=== PATIENT | male | born 1980 | race Caucasian/White ===

== ENCOUNTER 2016-12-01 04:51 | Inpatient (IN) | payer MEDICAID ==
[~2016-12-01] VITALS: Ht 182.9 cm; Wt 103.2 kg
[2016-12-01 05:58] LABS: Basophils # (auto) 0 uL; Basophils % (auto) 0.6 % (0.0-2.0); Eosinophils # (auto) 0 uL; Eosinophils % (auto) 0.3 % (0.0-7.0); Hematocrit 49.4 % (41.0-53.0); Hemoglobin 16.3 g/dL (13.5-17.5); Lymphocytes # (auto) 1.9 uL; Lymphocytes % (auto) 36.1 % (10.0-50.0); Mean Corpuscular Hemoglobin 29.9 pg (28.0-32.0); Mean Corpuscular Hgb Conc. 32.9 g/dL (32.0-36.0); Mean Corpuscular Volume 90.8 fL (80.0-100.0); Mean Platelet Volume 7.8 fL (7.4-10.4); Monocytes # (auto) 0.4 uL; Monocytes % (auto) 7.3 % (0.0-12.0); Neutrophils # (auto) 2.9 uL; Neutrophils % (auto) 55.7 % (37.0-80.0); Platelet Count (auto) 302 10^3/uL (140-450); White Blood Cell 5.1 10^3/uL (4.4-10.8)
[2016-12-01 06:21] LABS: Albumin 3.7 g/dL (3.4-5.0); BUN/Creatinine Ratio 9.5; Potassium 4.2 mmol/L (3.5-5.1)
[2016-12-01 06:23] LABS: Bilirubin, Total 0.4 mg/dL (0.2-1.0); Total Protein 8.1 g/dL (6.4-8.2)
[2016-12-01] MEDS ORDERED: SODIUM CHLORIDE 0.9% 1,000 ML IV ONE (08:00)
[2016-12-01] MEDS ORDERED: MORPHINE SULFATE 4 MG/ML SYRG IV ONE (08:15)
[2016-12-01] MEDS ORDERED: ONDANSETRON HCL 4 MG/2 ML VIAL IV ONE (08:15)
[2016-12-01 10:36] LABS: Urine RBC None Seen /hpf (0 - 3)
[2016-12-01 11:08] LABS: Urine Bilirubin Negative (Negative); Urine Blood Negative /uL (Negative); Urine Color Yellow (Yellow); Urine Glucose Normal (Normal); Urine Hyaline Cast FEW /lpf (0 - 2); Urine Ketone TRACE (Negative); Urine Mucus FEW (None Seen); Urine Nitrite Negative (Negative); Urine Urobilinogen Normal (Negative); Urine pH 5.5 (5.0-8.0)
[2016-12-01] MEDS ORDERED: PIPERACILLIN-TAZOB 3.375GM 100 ML IV ONE (11:30)
[2016-12-01] MEDS ORDERED: HYDROmorphone HCL 2 MG/ML VL IV ONE (11:30)
[2016-12-01] MEDS ORDERED: SODIUM CHLORIDE 0.9% 1,000 ML IV SCH (11:32)
[2016-12-01] MEDS ORDERED: MORPHINE SULFATE 4 MG/ML SYRG IV PRN ×2 (11:45→12:15)
[2016-12-01] MEDS ORDERED: MORPHINE SULF INJ 2 MG/ML SYRINGE 1ML IV PRN ×3 (11:45→12:15)
[2016-12-01] MEDS ORDERED: LORazepam 2MG/ML-1ML VIAL IV PRN ×2 (11:45→12:15)
[2016-12-01] MEDS ORDERED: PROMETHAZINE HCL 25 MG/ML 1ML IV PRN ×2 (11:45→12:15)
[2016-12-01] MEDS ORDERED: FAMOTIDINE (10MG/ML) 2ML VL IV SCH (11:45)
[2016-12-01] MEDS ORDERED: NITROGLYCERIN 0.4 MG SL TAB SL PRN (11:45)
[2016-12-01] MEDS ORDERED: OMEP20CA5 OR (12:11)
[2016-12-01] MEDS ORDERED: PANTOPRAZOLE SODIUM 40 MG/10 ML VIAL IV ONE (12:15)
[2016-12-01] MEDS: SODIUM CHLORIDE 0.9% 1,000 ML IV SCH ×2 (13:07→19:46)
[2016-12-01 13:57] LABS: INR 1.04 (0.9-1.15); Partial Thromboplastin Time 27.1 sec (22.64-33.71); Prothrombin Time 10.7 sec (9.37-12.3)
[2016-12-01] MEDS ORDERED: cefTRIAXone 1GM/50ML D5W 50 ML IV ONE (14:45)
[2016-12-01 17:00] VITALS: BP 113/98
[2016-12-01] MEDS: metroNIDAZOLE 500MG/100ML 100 ML IV SCH ×2 (18:37→23:42)
[2016-12-01 19:36] LABS: Hematocrit 42.2 % (41.0-53.0); Hemoglobin 13.8 g/dL (13.5-17.5)
[2016-12-01] MEDS: MORPHINE SULFATE 4 MG/ML SYRG IV PRN (20:07)
[2016-12-01 22:00] VITALS: BP 138/83
[2016-12-01] MEDS ORDERED: PANTOPRAZOLE SODIUM 40 MG/10 ML VIAL IV SCH (22:00)
[2016-12-01] MEDS ORDERED: KETOROLAC TROMETH 30 MG/ML 1ML VIAL IV PRN (22:15)
[2016-12-02] MEDS: MORPHINE SULFATE 4 MG/ML SYRG IV PRN ×2 (00:05→04:16)
[2016-12-02 01:20] LABS: Hematocrit 41.5 % (41.0-53.0); Hemoglobin 13.6 g/dL (13.5-17.5)
[2016-12-02] MEDS: SODIUM CHLORIDE 0.9% 1,000 ML IV SCH ×2 (04:16→12:07)
[2016-12-02 05:01] VITALS: BP 149/101
[2016-12-02] MEDS: metroNIDAZOLE 500MG/100ML 100 ML IV SCH ×2 (05:46→12:07)
[2016-12-02 05:58] LABS: Basophils # (auto) 0 uL; Basophils % (auto) 0.3 % (0.0-2.0); Eosinophils # (auto) 0 uL; Hematocrit 42.1 % (41.0-53.0); Hemoglobin 13.8 g/dL (13.5-17.5); Lymphocytes # (auto) 0.8 uL; Lymphocytes % (auto) 14.4 % (10.0-50.0); Mean Corpuscular Hgb Conc. 32.8 g/dL (32.0-36.0); Mean Corpuscular Volume 91.4 fL (80.0-100.0); Mean Platelet Volume 8.2 fL (7.4-10.4); Monocytes # (auto) 0.7 uL; Monocytes % (auto) 12.5 % (0.0-12.0); Neutrophils # (auto) 4.3 uL; Neutrophils % (auto) 72.8 % (37.0-80.0); Platelet Count (auto) 219 10^3/uL (140-450); Red Cell Distribution Width 14.1 % (11.6-16.0); White Blood Cell 5.9 10^3/uL (4.4-10.8)
[2016-12-02 06:33] LABS: Albumin 3.6 g/dL (3.4-5.0); BUN/Creatinine Ratio 12.7; Bilirubin, Total 0.9 mg/dL (0.2-1.0); Calcium 8.5 mg/dL (8.5-10.1)
[2016-12-02] MEDS ORDERED: SODIUM CHLORIDE LOCK 10 ML ONE (08:03)
[2016-12-02] MEDS ORDERED: LIDOCAINE VISCOUS 2% 15ML UD ONE (08:03)
[2016-12-02] MEDS ORDERED: diphenhdrAMINE HCL 50 MG/1 ML VL ONE (08:03)
[2016-12-02 08:27] VITALS: BP 143/99
[2016-12-02] MEDS ORDERED: cefTRIAXone 1GM/50ML D5W 50 ML IV SCH (09:00)
[2016-12-02] MEDS: MIDAZOLAM HCL 5 MG/ML-1ML VIAL ONE ×2 (09:17→09:20)
[2016-12-02] MEDS: fentaNYL CITRATE 100 MCG/2 ML VL ONE ×2 (09:17→09:20)
[2016-12-02] MEDS ORDERED: PANTOPRAZOLE 40 MG TAB PO SCH (10:00)
[2016-12-02] MEDS ORDERED: PANTOPRAZOLE SODIUM 40 MG/10 ML VIAL IV SCH (10:00)
[2016-12-02] MEDS ORDERED: PANT40T PO (15:55)
[2016-12-02 16:45] VITALS: BP 149/87
== END 2016-12-02 16:45 | disposition home health service (06) | DRG 241 ==
LOC: ER 05:03 → TELE 05:04 → TELE-E-ADS 12:53 → TELE-WESTW 14:12
PROVIDERS: ADMIT Internal Medicine; ATTEND Internal Medicine
PROC: 0DJ08ZZ Inspection of Upper Intestinal Tract, Via Natural or Artificial Opening Endoscopic (ICD-10-PCS; principal; 2016-12-02 09:12)
DX: K29.70 Gastritis, unspecified, without bleeding (principal); K85.01 Idiopathic acute pancreatitis with uninfected necrosis; G21.9 Secondary parkinsonism, unspecified; K76.0 Fatty (change of) liver, not elsewhere classified; K44.9 Diaphragmatic hernia without obstruction or gangrene; Z90.89 Acquired absence of other organs; K57.90 Diverticulosis of intestine, part unspecified, without perforation or abscess without bleeding; K86.1 Other chronic pancreatitis
CPT/HCPCS: 36415; 43235; 71010; 74176; 76705; 80053; 80061; 81001; 82150; 83690; 85014; 85018; 85025; 85045; 85049; 85610; 85652; 85730; 86141; 86704; 86706; 86708; 86803; 86850; 86900; 86901; 87040; 87340; 93005; 96361; 96365; 96375; C9113; G0434; J0696; J1885; J2250; J2405; J2543; J3490

== ENCOUNTER 2016-12-13 20:27 | Inpatient (IN) | payer MEDICAID ==
[~2016-12-13] VITALS: Ht 185.4 cm; Wt 100.3 kg
[~2016-12-13 20:27] MED LIST: PANT40T PO
[2016-12-13] MEDS ORDERED: SODIUM CHLORIDE 0.9% 1,000 ML IVB ONE (20:45)
[2016-12-13] MEDS ORDERED: HYDROmorphone HCL 2 MG/ML VL IV ONE (20:45)
[2016-12-13] MEDS ORDERED: PROCHLORPERAZINE EDISYLATE 5 MG/ML 2ML VIAL IV ONE (20:45)
[2016-12-13] MEDS ORDERED: PANTOPRAZOLE SODIUM 40 MG/10 ML VIAL IV ONE (20:45)
[2016-12-13 21:24] LABS: Basophils # (auto) 0 uL; Basophils % (auto) 0.3 % (0.0-2.0); Eosinophils # (auto) 0 uL; Hematocrit 47.2 % (41.0-53.0); Hemoglobin 15.2 g/dL (13.5-17.5); Lymphocytes # (auto) 1.5 uL; Lymphocytes % (auto) 27.3 % (10.0-50.0); Mean Corpuscular Hemoglobin 29.6 pg (28.0-32.0); Mean Corpuscular Hgb Conc. 32.3 g/dL (32.0-36.0); Mean Corpuscular Volume 91.9 fL (80.0-100.0); Mean Platelet Volume 7.8 fL (7.4-10.4); Monocytes # (auto) 0.4 uL; Monocytes % (auto) 8.1 % (0.0-12.0); Neutrophils # (auto) 3.5 uL; Neutrophils % (auto) 64.3 % (37.0-80.0); Platelet Count (auto) 327 10^3/uL (140-450); Red Cell Distribution Width 14.7 % (11.6-16.0); White Blood Cell 5.5 10^3/uL (4.4-10.8)
[2016-12-13 21:34] LABS: Albumin 4.1 g/dL (3.4-5.0); BUN/Creatinine Ratio 12.1; Bilirubin, Total 0.6 mg/dL (0.2-1.0); Calcium 8.4 mg/dL (8.5-10.1); Potassium 3.6 mmol/L (3.5-5.1); Total Protein 7.9 g/dL (6.4-8.2)
[2016-12-14] MEDS ORDERED: SODIUM CHLORIDE 0.9% 1,000 ML IV SCH (00:30)
[2016-12-14] MEDS ORDERED: ACETAMINOPHEN 325 MG TAB PO PRN (00:30)
[2016-12-14] MEDS ORDERED: THIAMINE INJ 100 MG, MULTIPLE VITAMIN 10 ML, FOLIC ACID 1 MG, MAGNESIUM SULF SDV 50% 8 ... IV ONE ×5 (00:30)
[2016-12-14] MEDS ORDERED: ONDANSETRON HCL 4 MG/2 ML VIAL IV PRN (00:30)
[2016-12-14] MEDS ORDERED: BANANA BAG KIT 1 EA IV ONE (01:13)
[2016-12-14] MEDS: MORPHINE SULF INJ 2 MG/ML SYRINGE 1ML IV PRN ×6 (02:24→22:32)
[2016-12-14 02:37] VITALS: BP 135/88
[2016-12-14] MEDS: HYDROcodone-ACET 5/325MG TAB PO PRN ×4 (04:54→20:13)
[2016-12-14 05:36] VITALS: BP 115/66
[2016-12-14 09:12] VITALS: BP 104/69
[2016-12-14] MEDS: PANTOPRAZOLE SODIUM 40 MG/10 ML VIAL IV SCH (09:17)
[2016-12-14] MEDS ORDERED: IOHEXOL 300 MG/ML 100ML BOTTLE IJ ONE (12:38)
[2016-12-14 12:44] VITALS: BP 119/65
[2016-12-14] MEDS: LACTATED RINGER'S 1,000 ML IV SCH ×2 (12:45→22:32)
[2016-12-14 17:06] VITALS: BP 126/74
[2016-12-14 21:15] VITALS: BP 140/89
[2016-12-15] MEDS: LACTATED RINGER'S 1,000 ML IV SCH ×4 (02:22→15:34)
[2016-12-15] MEDS: MORPHINE SULF INJ 2 MG/ML SYRINGE 1ML IV PRN ×4 (02:43→19:16)
[2016-12-15] MEDS: HYDROcodone-ACET 5/325MG TAB PO PRN ×3 (04:09→21:57)
[2016-12-15 05:47] VITALS: BP 132/87
[2016-12-15 06:15] LABS: Basophils # (auto) 0 uL; Basophils % (auto) 0.4 % (0.0-2.0); Eosinophils # (auto) 0 uL; Eosinophils % (auto) 0.2 % (0.0-7.0); Hematocrit 42.5 % (41.0-53.0); Hemoglobin 14.1 g/dL (13.5-17.5); Lymphocytes # (auto) 1.1 uL; Lymphocytes % (auto) 23.1 % (10.0-50.0); Mean Corpuscular Hemoglobin 30.6 pg (28.0-32.0); Mean Corpuscular Hgb Conc. 33.1 g/dL (32.0-36.0); Mean Corpuscular Volume 92.7 fL (80.0-100.0); Mean Platelet Volume 8.2 fL (7.4-10.4); Monocytes # (auto) 0.6 uL; Monocytes % (auto) 13.4 % (0.0-12.0); Neutrophils # (auto) 2.9 uL; Neutrophils % (auto) 62.9 % (37.0-80.0); Platelet Count (auto) 209 10^3/uL (140-450); Red Cell Distribution Width 13.7 % (11.6-16.0); White Blood Cell 4.6 10^3/uL (4.4-10.8)
[2016-12-15 07:01] LABS: Albumin 3.7 g/dL (3.4-5.0); BUN/Creatinine Ratio 8.3; Bilirubin, Total 1.4 mg/dL (0.2-1.0); Calcium 8.7 mg/dL (8.5-10.1); Potassium 3.8 mmol/L (3.5-5.1); Total Protein 7.4 g/dL (6.4-8.2)
[2016-12-15 09:00] VITALS: BP 147/98
[2016-12-15] MEDS: PANTOPRAZOLE SODIUM 40 MG/10 ML VIAL IV SCH (09:56)
[2016-12-15 13:00] VITALS: BP 132/95
[2016-12-15 17:00] VITALS: BP 141/103
[2016-12-15 22:00] VITALS: BP 136/103
[2016-12-16] MEDS: MORPHINE SULF INJ 2 MG/ML SYRINGE 1ML IV PRN ×6 (00:03→21:11)
[2016-12-16 05:52] VITALS: BP 137/88
[2016-12-16 05:54] LABS: Albumin 3.3 g/dL (3.4-5.0); BUN/Creatinine Ratio 7.9; Calcium 8.6 mg/dL (8.5-10.1)
[2016-12-16] MEDS: LACTATED RINGER'S 1,000 ML IV SCH ×2 (07:11→08:59)
[2016-12-16 08:00] VITALS: BP 128/73
[2016-12-16] MEDS: PANTOPRAZOLE SODIUM 40 MG/10 ML VIAL IV SCH (08:59)
[2016-12-16] MEDS: HYDROcodone-ACET 5/325MG TAB PO PRN ×2 (10:13→18:22)
[2016-12-16] MEDS ORDERED: POTASSIUM CHL 20 Meq TABLET PO ONE (12:30)
[2016-12-16 13:00] VITALS: BP 152/96
[2016-12-16 17:00] VITALS: BP 113/65
[2016-12-16 20:00] VITALS: BP 124/88
[2016-12-16 22:00] VITALS: BP 124/88
[2016-12-16] MEDS: DIAZEPAM 5 MG TAB PO PRN (22:16)
[2016-12-17] MEDS: MORPHINE SULF INJ 2 MG/ML SYRINGE 1ML IV PRN ×4 (01:44→15:26)
[2016-12-17 05:30] VITALS: BP 91/58
[2016-12-17] MEDS: HYDROcodone-ACET 5/325MG TAB PO PRN ×3 (08:19→17:41)
[2016-12-17 09:00] VITALS: BP 130/84
[2016-12-17] MEDS: PANTOPRAZOLE SODIUM 40 MG/10 ML VIAL IV SCH (10:19)
[2016-12-17 13:00] VITALS: BP 134/82
[2016-12-17] MEDS: DIAZEPAM 5 MG TAB PO PRN (13:26)
[2016-12-17] MEDS ORDERED: POTASSIUM CHL 20 Meq TABLET PO ONE (13:30)
[2016-12-17 17:00] VITALS: BP 138/95
[2016-12-17 18:08] VITALS: BP 134/82
== END 2016-12-17 18:45 | disposition home or self-care (01) | DRG 282 ==
LOC: EDBD 20:27 → ER 20:27 → OVERFLOW 20:28 → WEST WING 12-14 01:30
PROVIDERS: ADMIT Nurse Practitioner; ATTEND Internal Medicine Pulmonary Disease
DX: K85.20 Alcohol induced acute pancreatitis without necrosis or infection (principal); K76.0 Fatty (change of) liver, not elsewhere classified; F41.9 Anxiety disorder, unspecified; F10.10 Alcohol abuse, uncomplicated; E66.9 Obesity, unspecified; E87.6 Hypokalemia; K21.9 Gastro-esophageal reflux disease without esophagitis; Z71.41 Alcohol abuse counseling and surveillance of alcoholic; Z68.29 Body mass index [BMI] 29.0-29.9, adult; Z79.899 Other long term (current) drug therapy
CPT/HCPCS: 36415; 74177; 80053; 80320; 82150; 83690; 84132; 85025; 85049; 93005; 94761; 96361; 96374; 96375; C9113; J2405

== ENCOUNTER 2016-12-22 22:16 | Inpatient (IN) | payer MEDICAID ==
[~2016-12-22] VITALS: Ht 182.9 cm; Wt 103.5 kg
[2016-12-22 23:19] LABS: Hematocrit 45.3 % (41.0-53.0); Hemoglobin 14.4 g/dL (13.5-17.5); Mean Corpuscular Hemoglobin 29.5 pg (28.0-32.0); Mean Corpuscular Hgb Conc. 31.7 g/dL (32.0-36.0); Mean Corpuscular Volume 93.2 fL (80.0-100.0); Mean Platelet Volume 8.3 fL (7.4-10.4); Platelet Count (auto) 306 10^3/uL (140-450); Red Cell Distribution Width 15.6 % (11.6-16.0); White Blood Cell 4.2 10^3/uL (4.4-10.8)
[2016-12-22 23:23] LABS: Metamyelocytes % 0; Myelocytes % 0; Promyelocytes % 0; Reactive Lymphocytes 0
[2016-12-22 23:38] LABS: Albumin 3.7 g/dL (3.4-5.0); BUN/Creatinine Ratio 7.2; Calcium 8.7 mg/dL (8.5-10.1); Magnesium 2.2 mg/dL (1.6-2.6); Potassium 3.8 mmol/L (3.5-5.1)
[2016-12-22 23:40] LABS: Bilirubin, Total 0.4 mg/dL (0.2-1.0); Total Protein 7.5 g/dL (6.4-8.2)
[2016-12-23 00:21] LABS: Platelet Estimate Adequate; RBC Morphology Normal
[2016-12-23] MEDS ORDERED: SODIUM CHLORIDE 0.9% 2,000 ML IV ONE (03:15)
[2016-12-23] MEDS ORDERED: THIAMINE HCL 100 MG/ML 2ML VIAL IV ONE (03:15)
[2016-12-23] MEDS ORDERED: MORPHINE SULFATE 4 MG/ML SYRG IV ONE (03:30)
[2016-12-23] MEDS ORDERED: ONDANSETRON HCL 4 MG/2 ML VIAL IV ONE ×2 (03:30→06:15)
[2016-12-23] MEDS ORDERED: HYDROmorphone HCL 2 MG/ML VL IV ONE (06:15)
[2016-12-23] MEDS ORDERED: SODIUM CHLORIDE 0.9% 1,000 ML IV ONE ×3 (06:15)
[2016-12-23] MEDS ORDERED: LORazepam 2MG/ML-1ML VIAL IV PRN ×2 (06:15→11:45)
[2016-12-23] MEDS: SUCRALFATE 1 GM TAB PO SCH ×4 (06:22→20:49)
[2016-12-23] MEDS: PANTOPRAZOLE SODIUM 40 MG/10 ML VIAL IV SCH ×3 (06:22→20:52)
[2016-12-23] MEDS ORDERED: HYDROmorphone HCL 2 MG/ML VL IV PRN (09:00)
[2016-12-23] MEDS ORDERED: ONDANSETRON HCL 4 MG/2 ML VIAL IV PRN (09:00)
[2016-12-23] MEDS: THIAMINE HCL 100 MG TAB PO SCH (11:40)
[2016-12-23] MEDS ORDERED: FOLIC ACID 1 MG in D5W 5% 50 ML IV ONE (11:45)
[2016-12-23 12:21] LABS: Basophils # (auto) 0 uL; Basophils % (auto) 0.4 % (0.0-2.0); Eosinophils # (auto) 0 uL; Hematocrit 37.8 % (41.0-53.0); Hemoglobin 11.9 g/dL (13.5-17.5); Lymphocytes # (auto) 2.3 uL; Lymphocytes % (auto) 49.6 % (10.0-50.0); Mean Corpuscular Hemoglobin 29.3 pg (28.0-32.0); Mean Corpuscular Hgb Conc. 31.3 g/dL (32.0-36.0); Mean Corpuscular Volume 93.6 fL (80.0-100.0); Mean Platelet Volume 8.4 fL (7.4-10.4); Monocytes # (auto) 0.5 uL; Monocytes % (auto) 10.6 % (0.0-12.0); Neutrophils # (auto) 1.8 uL; Neutrophils % (auto) 38.4 % (37.0-80.0); Platelet Count (auto) 257 10^3/uL (140-450); Red Cell Distribution Width 15.3 % (11.6-16.0); White Blood Cell 4.6 10^3/uL (4.4-10.8)
[2016-12-23 12:29] LABS: Urine RBC None Seen /hpf (0 - 3)
[2016-12-23 12:32] LABS: Albumin 3.1 g/dL (3.4-5.0); BUN/Creatinine Ratio 7.5; Calcium 7.4 mg/dL (8.5-10.1); Magnesium 1.7 mg/dL (1.6-2.6); Potassium 3.8 mmol/L (3.5-5.1)
[2016-12-23 12:35] LABS: Bilirubin, Total 0.4 mg/dL (0.2-1.0)
[2016-12-23] MEDS: D5W/SOD CHL 0.45% 1,000 ML IV SCH ×2 (12:35→20:53)
[2016-12-23] MEDS: LORazepam 2MG/ML-1ML VIAL IV SCH ×2 (12:35→18:30)
[2016-12-23] MEDS: HYDROmorphone HCL 2 MG/ML VL IV PRN ×3 (12:36→20:52)
[2016-12-23] MEDS: ONDANSETRON HCL 4 MG/2 ML VIAL IV PRN ×2 (12:38→18:39)
[2016-12-23 12:45] LABS: Bilirubin, Direct 0.2 mg/dL (0-0.2)
[2016-12-23 12:48] LABS: INR 1.04 (0.9-1.15); Partial Thromboplastin Time 26.6 sec (22.64-33.71); Prothrombin Time 10.7 sec (9.37-12.3)
[2016-12-23 14:01] LABS: Urine Bilirubin Negative (Negative); Urine Blood Negative /uL (Negative); Urine Color Yellow (Yellow); Urine Glucose Normal (Normal); Urine Ketone Negative (Negative); Urine Mucus FEW (None Seen); Urine Nitrite Negative (Negative); Urine Squamous Epithelial Cell FEW /hpf (<5); Urine Urobilinogen Normal (Negative); Urine pH 5.5 (5.0-8.0)
[2016-12-23 20:00] VITALS: BP 141/94
[2016-12-23 20:21] VITALS: BP 106/64
[2016-12-24] VITALS: BP 140/84
[2016-12-24] MEDS: LORazepam 2MG/ML-1ML VIAL IV SCH ×3 (00:25→12:29)
[2016-12-24] MEDS: HYDROmorphone HCL 2 MG/ML VL IV PRN ×2 (03:08→08:26)
[2016-12-24 03:54] VITALS: BP 131/80
[2016-12-24] MEDS: SUCRALFATE 1 GM TAB PO SCH ×2 (05:25→11:30)
[2016-12-24 06:20] LABS: Basophils # (auto) 0 uL; Basophils % (auto) 0.4 % (0.0-2.0); Eosinophils # (auto) 0.1 uL; Eosinophils % (auto) 2.2 % (0.0-7.0); Hematocrit 37.2 % (41.0-53.0); Hemoglobin 11.6 g/dL (13.5-17.5); Lymphocytes # (auto) 1.6 uL; Lymphocytes % (auto) 41.9 % (10.0-50.0); Mean Corpuscular Hemoglobin 29.6 pg (28.0-32.0); Mean Corpuscular Hgb Conc. 31.3 g/dL (32.0-36.0); Mean Corpuscular Volume 94.6 fL (80.0-100.0); Mean Platelet Volume 8.5 fL (7.4-10.4); Monocytes # (auto) 0.7 uL; Monocytes % (auto) 17.5 % (0.0-12.0); Neutrophils # (auto) 1.5 uL; Platelet Count (auto) 239 10^3/uL (140-450); Red Cell Distribution Width 14.9 % (11.6-16.0); White Blood Cell 3.8 10^3/uL (4.4-10.8)
[2016-12-24 06:25] LABS: INR 1.05 (0.9-1.15); Partial Thromboplastin Time 26.7 sec (22.64-33.71); Prothrombin Time 10.8 sec (9.37-12.3)
[2016-12-24 06:32] LABS: Potassium 3.4 mmol/L (3.5-5.1)
[2016-12-24 06:41] LABS: BUN/Creatinine Ratio 6.1; Bilirubin, Total 0.8 mg/dL (0.2-1.0); Calcium 7.4 mg/dL (8.5-10.1); Magnesium 1.6 mg/dL (1.6-2.6); Total Protein 5.9 g/dL (6.4-8.2)
[2016-12-24 07:00] LABS: Bilirubin, Direct 0.3 mg/dL (0-0.2)
[2016-12-24] MEDS: D5W/SOD CHL 0.45% 1,000 ML IV SCH (07:45)
[2016-12-24 08:00] VITALS: BP 141/80
[2016-12-24] MEDS: PANTOPRAZOLE SODIUM 40 MG/10 ML VIAL IV SCH (09:43)
[2016-12-24] MEDS: THIAMINE HCL 100 MG TAB PO SCH (09:44)
[2016-12-24] MEDS ORDERED: FOLIC ACID 1 MG TAB PO SCH (10:00)
[2016-12-24] MEDS ORDERED: HYDROmorphone HCL 2 MG/ML VL IV PRN (11:45)
[2016-12-24 12:00] VITALS: BP 143/91
[2016-12-25] MEDS ORDERED: THIAMINE HCL 100 MG TAB PO SCH (10:00)
== END 2016-12-24 14:36 | disposition left against medical advice (07) | DRG 282 ==
LOC: ER 22:20 → TELE 22:21 → DOU IN ICU 12-23 20:03
PROVIDERS: ADMIT Family Medicine; ATTEND Internal Medicine
DX: K85.20 Alcohol induced acute pancreatitis without necrosis or infection (principal); E87.0 Hyperosmolality and hypernatremia; K70.9 Alcoholic liver disease, unspecified; F10.229 Alcohol dependence with intoxication, unspecified; K59.00 Constipation, unspecified; E87.6 Hypokalemia; K21.9 Gastro-esophageal reflux disease without esophagitis; Z53.21 Procedure and treatment not carried out due to patient leaving prior to being seen by health care provider; E86.0 Dehydration; F41.9 Anxiety disorder, unspecified; K29.70 Gastritis, unspecified, without bleeding; R74.0 Nonspecific elevation of levels of transaminase and lactic acid dehydrogenase [LDH]; Z91.19 Patient's noncompliance with other medical treatment and regimen
CPT/HCPCS: 36415; 74176; 80048; 80053; 80076; 80320; 81001; 82150; 83690; 83735; 84100; 85007; 85025; 85027; 85610; 85730; 87081; 96361; 96365; 96366; 96375; 96376; C9113; G0434; J2405; J7042; J7060

== ENCOUNTER 2016-12-26 21:18 | Emergency (ER) | payer MEDICAID ==
[~2016-12-26] VITALS: Ht 180.3 cm; Wt 99.8 kg
[2016-12-26] MEDS ORDERED: diphenhdrAMINE HCL 50 MG/1 ML VL IM ONE (21:45)
[2016-12-26] MEDS ORDERED: LORazepam 2MG/ML-1ML VIAL IM ONE (21:45)
[2016-12-26 22:04] LABS: Basophils # (auto) 0 uL; Basophils % (auto) 0.3 % (0.0-2.0); Eosinophils # (auto) 0 uL; Eosinophils % (auto) 0.1 % (0.0-7.0); Hematocrit 45.2 % (41.0-53.0); Hemoglobin 14.5 g/dL (13.5-17.5); Lymphocytes # (auto) 2.6 uL; Lymphocytes % (auto) 41.7 % (10.0-50.0); Mean Corpuscular Hemoglobin 30.4 pg (28.0-32.0); Mean Corpuscular Hgb Conc. 32.1 g/dL (32.0-36.0); Mean Corpuscular Volume 94.7 fL (80.0-100.0); Mean Platelet Volume 7.7 fL (7.4-10.4); Monocytes # (auto) 0.6 uL; Monocytes % (auto) 10.5 % (0.0-12.0); Neutrophils # (auto) 2.9 uL; Neutrophils % (auto) 47.4 % (37.0-80.0); Platelet Count (auto) 356 10^3/uL (140-450); Red Cell Distribution Width 15.3 % (11.6-16.0); White Blood Cell 6.2 10^3/uL (4.4-10.8)
[2016-12-26] MEDS ORDERED: SODIUM CHLORIDE 0.9% 1,000 ML IV ONE (22:15)
[2016-12-26 22:20] LABS: Albumin 3.4 g/dL (3.4-5.0); Potassium 3.6 mmol/L (3.5-5.1)
[2016-12-26 22:23] LABS: BUN/Creatinine Ratio 4.2
[2016-12-26 22:29] LABS: Bilirubin, Total 0.3 mg/dL (0.2-1.0)
[2016-12-27 01:05] LABS: Calcium 7.6 mg/dL (8.5-10.1); Potassium 3.8 mmol/L (3.5-5.1)
[2016-12-27 01:09] LABS: BUN/Creatinine Ratio 3.4
[2016-12-27 01:35] VITALS: BP 117/72
== END 2016-12-27 06:06 | disposition home or self-care (01) ==
LOC: EDBD 21:18 → EDUNIT# 21:18 → ER 21:21
DX: K85.20 Alcohol induced acute pancreatitis without necrosis or infection (principal); E87.0 Hyperosmolality and hypernatremia; K21.9 Gastro-esophageal reflux disease without esophagitis
CPT/HCPCS: 36415; 74176; 80048; 80053; 80320; 83690; 85025; 93005; 96360; 96372; 99285; J1200; J2060; J7030

== ENCOUNTER 2017-01-23 13:06 | Emergency (ER) | payer MEDICAID ==
[~2017-01-23] VITALS: Ht 180.3 cm; Wt 79.4 kg
[2017-01-23 13:18] VITALS: BP 160/102
[2017-01-23 14:12] LABS: Basophils # (auto) 0 uL; Basophils % (auto) 0.5 % (0.0-2.0); Eosinophils # (auto) 0 uL; Eosinophils % (auto) 0.4 % (0.0-7.0); Hematocrit 45.8 % (41.0-53.0); Hemoglobin 15.4 g/dL (13.5-17.5); Lymphocytes # (auto) 1.8 uL; Lymphocytes % (auto) 54.1 % (10.0-50.0); Mean Corpuscular Hemoglobin 31.6 pg (28.0-32.0); Mean Corpuscular Hgb Conc. 33.7 g/dL (32.0-36.0); Mean Corpuscular Volume 93.8 fL (80.0-100.0); Mean Platelet Volume 7.6 fL (7.4-10.4); Monocytes # (auto) 0.2 uL; Monocytes % (auto) 5.1 % (0.0-12.0); Neutrophils # (auto) 1.3 uL; Neutrophils % (auto) 39.9 % (37.0-80.0); Platelet Count (auto) 353 10^3/uL (140-450); Red Cell Distribution Width 17.1 % (11.6-16.0); White Blood Cell 3.3 10^3/uL (4.4-10.8)
[2017-01-23 15:10] LABS: Amylase 60 U/L (25-115); Anion Gap 18 (5-15); BUN/Creatinine Ratio 7.2; Blood Urea Nitrogen 6 mg/dL (7-18); Calcium 8.4 mg/dL (8.5-10.1); Carbon Dioxide 22 mmol/L (21-32); Chloride 110 mmol/L (98-107); GFR African American 133 mL/min; GFR Non-African American 110 mL/min; Glucose 102 mg/dL (74-106); Sodium 150 mmol/L (136-145)
== END 2017-01-23 20:30 | disposition left against medical advice (07) ==
LOC: EDUNIT# 13:06 → ER 13:06
DX: K85.90 Acute pancreatitis without necrosis or infection, unspecified (principal); R10.9 Unspecified abdominal pain; M54.9 Dorsalgia, unspecified; Z53.21 Procedure and treatment not carried out due to patient leaving prior to being seen by health care provider
CPT/HCPCS: 36415; 80048; 82150; 83690; 84484; 85025

== ENCOUNTER 2017-02-02 00:28 | Inpatient (IN) | payer MEDICAID ==
[~2017-02-02] VITALS: Ht 177.8 cm; Wt 97.6 kg
[2017-02-02 00:49] LABS: Urine RBC None Seen /hpf (0 - 3)
[2017-02-02 01:03] LABS: Urine Bilirubin Negative (Negative); Urine Blood Negative /uL (Negative); Urine Color Yellow (Yellow); Urine Glucose Normal (Normal); Urine Ketone Negative (Negative); Urine Nitrite Negative (Negative); Urine Urobilinogen Normal (Negative); Urine pH 6.5 (5.0-8.0)
[2017-02-02 01:03] LABS: DEFINITIVE VIEW TRANSMISSION; Hematocrit 44.2 % (41.0-53.0); Hemoglobin 14.4 g/dL (13.5-17.5); Mean Corpuscular Hemoglobin 30.8 pg (28.0-32.0); Mean Corpuscular Hgb Conc. 32.7 g/dL (32.0-36.0); Mean Corpuscular Volume 94.1 fL (80.0-100.0); Mean Platelet Volume 7.3 fL (7.4-10.4); Platelet Count (auto) 271 10^3/uL (140-450); Red Cell Distribution Width 15.8 % (11.6-16.0); White Blood Cell 4.4 10^3/uL (4.4-10.8)
[2017-02-02 01:13] LABS: Metamyelocytes % 0; Myelocytes % 0; Promyelocytes % 0; Reactive Lymphocytes 0
[2017-02-02 01:24] LABS: Albumin 3.4 g/dL (3.4-5.0); BUN/Creatinine Ratio 8.6; Calcium 8.1 mg/dL (8.5-10.1); Magnesium 1.7 mg/dL (1.6-2.6); Potassium 3.2 mmol/L (3.5-5.1)
[2017-02-02 01:27] LABS: Bilirubin, Total 0.5 mg/dL (0.2-1.0); Total Protein 6.9 g/dL (6.4-8.2)
[2017-02-02 01:28] LABS: Hypersegmented Neutrophils Present; Platelet Estimate Adequate
[2017-02-02 01:29] LABS: RBC Morphology Normal
[2017-02-02] MEDS ORDERED: ONDANSETRON ODT 4 MG TAB PO ONE (03:30)
[2017-02-02] MEDS ORDERED: MORPHINE SULF INJ 2 MG/ML SYRINGE 1ML IM ONE (05:15)
[2017-02-02] MEDS ORDERED: SODIUM CHLORIDE 0.9% 1,000 ML IV ONE (07:00)
[2017-02-02] MEDS ORDERED: PANTOPRAZOLE SODIUM 40 MG/10 ML VIAL IV ONE ×2 (07:00→07:30)
[2017-02-02] MEDS ORDERED: PROMETHAZINE HCL 25 MG/ML 1ML IV PRN (07:30)
[2017-02-02] MEDS ORDERED: LORazepam 2MG/ML-1ML VIAL IV PRN (07:30)
[2017-02-02] MEDS ORDERED: NITROGLYCERIN 0.4 MG SL TAB SL PRN (07:30)
[2017-02-02] MEDS ORDERED: MORPHINE SULF INJ 2 MG/ML SYRINGE 1ML IV PRN (07:30)
[2017-02-02] MEDS ORDERED: HYDROmorphone HCL 2 MG/ML VL IV ONE (08:15)
[2017-02-02] MEDS ORDERED: POTASSIUM CHL 20MEQ/100ML 100 ML IV ONE (08:15)
[2017-02-02] MEDS ORDERED: ONDANSETRON HCL 4 MG/2 ML VIAL IV ONE (08:15)
[2017-02-02] MEDS: LEVOFLOXACIN 500MG 100 ML IV SCH (08:21)
[2017-02-02 08:24] LABS: INR 1.07 (0.9-1.15); Partial Thromboplastin Time 26.7 sec (22.64-33.71)
[2017-02-02] MEDS: SODIUM CHLORIDE 0.9% 1,000 ML IV SCH ×3 (08:37→22:08)
[2017-02-02] MEDS: THIAMINE HCL 100 MG/ML 2ML VIAL IV SCH (09:52)
[2017-02-02] MEDS ORDERED: LIDOCAINE VISCOUS 2% 15ML UD ONE (11:23)
[2017-02-02] MEDS ORDERED: diphenhdrAMINE HCL 50 MG/1 ML VL ONE (11:23)
[2017-02-02] MEDS: fentaNYL CITRATE 100 MCG/2 ML VL ONE ×2 (11:49→11:52)
[2017-02-02] MEDS: MIDAZOLAM HCL 5 MG/ML-1ML VIAL ONE ×2 (11:49→11:52)
[2017-02-02] MEDS ORDERED: GASTROGRAFIN 120 ML SOL ONE (12:33)
[2017-02-02 13:00] VITALS: BP 129/78
[2017-02-02] MEDS: chlordiazePOXIDE HCL 5 MG CAP PO SCH ×2 (13:05→17:55)
[2017-02-02 13:14] LABS: Hematocrit 35.9 % (41.0-53.0); Hemoglobin 12.1 g/dL (13.5-17.5)
[2017-02-02] MEDS: MORPHINE SULF INJ 2 MG/ML SYRINGE 1ML IV PRN (13:21)
[2017-02-02] MEDS: metroNIDAZOLE 500MG/100ML 100 ML IV SCH ×2 (15:45→22:10)
[2017-02-02 16:18] VITALS: BP 129/78
[2017-02-02 17:00] VITALS: BP 128/85
[2017-02-02] MEDS: MORPHINE SULFATE 4 MG/ML SYRG IV PRN ×2 (17:55→22:00)
[2017-02-02 18:25] LABS: Hematocrit 38.4 % (41.0-53.0); Hemoglobin 12.9 g/dL (13.5-17.5)
[2017-02-02 20:00] VITALS: BP 159/93
[2017-02-02] MEDS: PANTOPRAZOLE 40 MG TAB PO SCH (20:45)
[2017-02-02] MEDS ORDERED: PANTOPRAZOLE SODIUM 40 MG/10 ML VIAL IV SCH (22:00)
[2017-02-02 22:05] VITALS: BP 159/93
[2017-02-03] MEDS: chlordiazePOXIDE HCL 5 MG CAP PO SCH ×3 (00:13→12:03)
[2017-02-03 00:46] LABS: Hematocrit 37.3 % (41.0-53.0); Hemoglobin 12.5 g/dL (13.5-17.5)
[2017-02-03] MEDS: MORPHINE SULFATE 4 MG/ML SYRG IV PRN (03:13)
[2017-02-03] MEDS: SODIUM CHLORIDE 0.9% 1,000 ML IV SCH ×2 (03:53→10:24)
[2017-02-03 05:27] VITALS: BP 137/84
[2017-02-03] MEDS: metroNIDAZOLE 500MG/100ML 100 ML IV SCH ×2 (05:43→13:59)
[2017-02-03 05:59] LABS: Amylase 39 U/L (25-115); Cholesterol 168 mg/dL (<200); HDL Cholesterol 80 mg/dL (40-59); LDL Cholesterol 83 mg/dL (<100); Triglycerides 53 mg/dL (<150)
[2017-02-03] MEDS: MORPHINE SULF INJ 2 MG/ML SYRINGE 1ML IV PRN ×2 (07:55→12:03)
[2017-02-03 08:21] VITALS: BP 134/91
[2017-02-03 09:00] VITALS: BP 134/91
[2017-02-03] MEDS ORDERED: PANTOPRAZOLE SODIUM 40 MG/10 ML VIAL IV SCH (10:00)
[2017-02-03] MEDS: THIAMINE HCL 100 MG/ML 2ML VIAL IV SCH (10:24)
[2017-02-03] MEDS: LEVOFLOXACIN 500MG 100 ML IV SCH (10:24)
[2017-02-03] MEDS: PANTOPRAZOLE 40 MG TAB PO SCH (10:24)
[2017-02-03 13:00] VITALS: BP 121/79
[2017-02-03 15:58] VITALS: BP 121/79
== END 2017-02-03 16:39 | disposition home or self-care (01) | DRG 282 ==
LOC: EDBD 00:28 → ER 00:28 → TELE 00:29 → TELE-WESTW 11:04
PROVIDERS: ADMIT Internal Medicine; ATTEND Internal Medicine
PROC: 0DB68ZX Excision of Stomach, Via Natural or Artificial Opening Endoscopic, Diagnostic (ICD-10-PCS; 2017-02-02)
PROC: 0DB48ZX Excision of Esophagogastric Junction, Via Natural or Artificial Opening Endoscopic, Diagnostic (ICD-10-PCS; principal; 2017-02-02 11:46)
DX: K85.20 Alcohol induced acute pancreatitis without necrosis or infection (principal); K56.7 Ileus, unspecified; K76.0 Fatty (change of) liver, not elsewhere classified; E87.6 Hypokalemia; K44.9 Diaphragmatic hernia without obstruction or gangrene; K57.30 Diverticulosis of large intestine without perforation or abscess without bleeding; K21.9 Gastro-esophageal reflux disease without esophagitis; K29.70 Gastritis, unspecified, without bleeding; K86.1 Other chronic pancreatitis; Z90.49 Acquired absence of other specified parts of digestive tract; Z82.5 Family history of asthma and other chronic lower respiratory diseases; Z80.9 Family history of malignant neoplasm, unspecified; Z87.19 Personal history of other diseases of the digestive system
CPT/HCPCS: 36415; 43239; 74176; 74250; 80053; 80061; 80320; 81001; 82150; 83690; 83735; 85007; 85014; 85018; 85027; 85045; 85610; 85730; 86850; 86900; 86901; 87081; 96361; 96372; 96374; 96375; C9113; J1956; J2250; J3480; J3490; Q0162

== ENCOUNTER 2017-02-05 00:56 | Inpatient (IN) | payer MEDICAID ==
[~2017-02-05] VITALS: Ht 185.4 cm; Wt 100.3 kg
[2017-02-05 01:32] LABS: Basophils # (auto) 0 uL; Basophils % (auto) 0.4 % (0.0-2.0); Eosinophils # (auto) 0 uL; Eosinophils % (auto) 0.2 % (0.0-7.0); Hematocrit 41.7 % (41.0-53.0); Hemoglobin 13.8 g/dL (13.5-17.5); Lymphocytes # (auto) 1.5 uL; Lymphocytes % (auto) 47.5 % (10.0-50.0); Mean Corpuscular Hemoglobin 31.6 pg (28.0-32.0); Mean Corpuscular Hgb Conc. 33.1 g/dL (32.0-36.0); Mean Corpuscular Volume 95.4 fL (80.0-100.0); Mean Platelet Volume 8.1 fL (7.4-10.4); Monocytes # (auto) 0.4 uL; Monocytes % (auto) 13.1 % (0.0-12.0); Neutrophils # (auto) 1.2 uL; Neutrophils % (auto) 38.8 % (37.0-80.0); Platelet Count (auto) 282 10^3/uL (140-450); Red Cell Distribution Width 16.9 % (11.6-16.0); White Blood Cell 3.2 10^3/uL (4.4-10.8)
[2017-02-05 01:49] LABS: Albumin 3.4 g/dL (3.4-5.0); BUN/Creatinine Ratio 4.9; Calcium 7.7 mg/dL (8.5-10.1); Potassium 3.2 mmol/L (3.5-5.1)
[2017-02-05 01:52] LABS: Bilirubin, Total 0.4 mg/dL (0.2-1.0); Total Protein 6.6 g/dL (6.4-8.2)
[2017-02-05] MEDS ORDERED: SODIUM CHLORIDE 0.9% 500 ML IVB ONE (01:58)
[2017-02-05 02:39] LABS: Urine Bilirubin Negative (Negative); Urine Blood Negative /uL (Negative); Urine Color Yellow (Yellow); Urine Glucose Normal (Normal); Urine Ketone TRACE (Negative); Urine Mucus FEW (None Seen); Urine Nitrite Negative (Negative); Urine RBC None Seen /hpf (0 - 3); Urine Urobilinogen Normal (Negative)
[2017-02-05] MEDS ORDERED: ZOLPIDEM TARTRATE 5 MG TAB PO ONE (23:15)
[2017-02-06 07:40] LABS: Basophils # (auto) 0 uL; Basophils % (auto) 0.5 % (0.0-2.0); Eosinophils # (auto) 0 uL; Hematocrit 38.3 % (41.0-53.0); Hemoglobin 12.8 g/dL (13.5-17.5); Lymphocytes # (auto) 1.3 uL; Lymphocytes % (auto) 35.7 % (10.0-50.0); Mean Corpuscular Hemoglobin 31.8 pg (28.0-32.0); Mean Corpuscular Hgb Conc. 33.5 g/dL (32.0-36.0); Mean Corpuscular Volume 94.8 fL (80.0-100.0); Mean Platelet Volume 7.9 fL (7.4-10.4); Monocytes # (auto) 0.6 uL; Monocytes % (auto) 16.9 % (0.0-12.0); Neutrophils # (auto) 1.7 uL; Neutrophils % (auto) 45.9 % (37.0-80.0); Platelet Count (auto) 244 10^3/uL (140-450); Red Cell Distribution Width 16.5 % (11.6-16.0); White Blood Cell 3.6 10^3/uL (4.4-10.8)
[2017-02-06 08:09] LABS: Albumin 2.9 g/dL (3.4-5.0); BUN/Creatinine Ratio 6.6; Calcium 7.6 mg/dL (8.5-10.1); Potassium 3.4 mmol/L (3.5-5.1)
[2017-02-06 08:12] LABS: Bilirubin, Total 0.8 mg/dL (0.2-1.0); Total Protein 5.8 g/dL (6.4-8.2)
[2017-02-06] MEDS ORDERED: PANTOPRAZOLE 40 MG TAB PO ONE (15:15)
[2017-02-06] MEDS ORDERED: POTASSIUM CHL 20 Meq TABLET PO ONE (18:45)
[2017-02-06] MEDS ORDERED: NITROGLYCERIN 0.4 MG SL TAB SL PRN (19:15)
[2017-02-06] MEDS ORDERED: MORPHINE SULF INJ 2 MG/ML SYRINGE 1ML IV PRN ×2 (19:15)
[2017-02-06] MEDS ORDERED: DOCUSATE SOD 100 MG CAP PO PRN (19:15)
[2017-02-06] MEDS ORDERED: ONDANSETRON HCL 4 MG/2 ML VIAL IV PRN (19:15)
[2017-02-06] MEDS ORDERED: ACETAMINOPHEN 325 MG TAB PO PRN (19:15)
[2017-02-06] MEDS ORDERED: TEMAZEPAM 15 MG CAP PO PRN (19:15)
[2017-02-06 19:21] LABS: Amylase 35 U/L (25-115)
[2017-02-06 20:11] LABS: INR 1.04 (0.9-1.15); Prothrombin Time 10.7 sec (9.37-12.3)
[2017-02-06] MEDS ORDERED: cloNIDine HCL 0.1 MG TAB PO PRN (20:15)
[2017-02-06] MEDS ORDERED: THIAMINE INJ 100 MG, MULTIPLE VITAMIN 10 ML, FOLIC ACID 1 MG, MAGNESIUM SULF SDV 50% 8 ... IV ONE ×5 (21:00)
[2017-02-06] MEDS: HYDROcodone-ACET 5/325MG TAB PO PRN (21:29)
[2017-02-06] MEDS ORDERED: FAMOTIDINE 20 MG TAB PO SCH (22:00)
[2017-02-06] MEDS: BOOST PLUS 8 ounce PO SCH (22:00)
[2017-02-06] MEDS: SODIUM CHLOR 0.9% PF (SALINE LOCK) 10ML VIAL IV SCH (22:22)
[2017-02-07] MEDS: MORPHINE SULF INJ 2 MG/ML SYRINGE 1ML IV PRN ×2 (00:15→06:51)
[2017-02-07] MEDS ORDERED: cloNIDine HCL 0.1 MG TAB PO PRN (00:30)
[2017-02-07 01:02] VITALS: BP 143/98
[2017-02-07] MEDS: HYDROcodone-ACET 5/325MG TAB PO PRN (05:40)
[2017-02-07] MEDS: SODIUM CHLOR 0.9% PF (SALINE LOCK) 10ML VIAL IV SCH (05:41)
[2017-02-07] MEDS: BOOST PLUS 8 ounce PO SCH (06:00)
[2017-02-07 07:23] LABS: Basophils # (auto) 0 uL; Basophils % (auto) 0.3 % (0.0-2.0); Eosinophils # (auto) 0 uL; Eosinophils % (auto) 0.7 % (0.0-7.0); Hematocrit 36.8 % (41.0-53.0); Hemoglobin 12.3 g/dL (13.5-17.5); Lymphocytes # (auto) 1.6 uL; Lymphocytes % (auto) 43.2 % (10.0-50.0); Mean Corpuscular Hemoglobin 31.8 pg (28.0-32.0); Mean Corpuscular Hgb Conc. 33.5 g/dL (32.0-36.0); Mean Corpuscular Volume 94.9 fL (80.0-100.0); Mean Platelet Volume 8.7 fL (7.4-10.4); Monocytes # (auto) 0.6 uL; Neutrophils # (auto) 1.5 uL; Neutrophils % (auto) 39.8 % (37.0-80.0); Platelet Count (auto) 228 10^3/uL (140-450); Red Cell Distribution Width 17.1 % (11.6-16.0); White Blood Cell 3.8 10^3/uL (4.4-10.8)
[2017-02-07 07:26] LABS: Bilirubin, Total 0.8 mg/dL (0.2-1.0); Calcium 8.1 mg/dL (8.5-10.1); Potassium 3.4 mmol/L (3.5-5.1); Total Protein 5.8 g/dL (6.4-8.2)
[2017-02-07 09:00] VITALS: BP 123/77
[2017-02-07] MEDS ORDERED: MULTIPLE VITAMIN TAB PO SCH (10:00)
[2017-02-07] MEDS ORDERED: PANTOPRAZOLE 40 MG TAB PO SCH (10:00)
[2017-02-07 12:13] VITALS: BP 142/90
== END 2017-02-07 14:10 | disposition home health service (06) | DRG 812 ==
LOC: ER 00:58 → TELE 00:59 → TELE-WESTW 02-07
PROVIDERS: ADMIT Internal Medicine; ATTEND Internal Medicine
DX: T42.4X2A Poisoning by benzodiazepines, intentional self-harm, initial encounter (principal); E43 Unspecified severe protein-calorie malnutrition; G93.40 Encephalopathy, unspecified; E87.0 Hyperosmolality and hypernatremia; K86.1 Other chronic pancreatitis; K70.30 Alcoholic cirrhosis of liver without ascites; E83.51 Hypocalcemia; F41.9 Anxiety disorder, unspecified; F32.9 Major depressive disorder, single episode, unspecified; F10.229 Alcohol dependence with intoxication, unspecified; K21.9 Gastro-esophageal reflux disease without esophagitis; E87.6 Hypokalemia; Y90.8 Blood alcohol level of 240 mg/100 ml or more; D63.8 Anemia in other chronic diseases classified elsewhere; Y92.098 Other place in other non-institutional residence as the place of occurrence of the external cause; Z90.49 Acquired absence of other specified parts of digestive tract; Z68.29 Body mass index [BMI] 29.0-29.9, adult; Z91.19 Patient's noncompliance with other medical treatment and regimen
CPT/HCPCS: 36415; 71010; 80053; 80320; 80329; 81001; 82150; 83690; 85025; 85610; 87081; 93005; 94761; 96361; 96374; G0434; J2405

== ENCOUNTER 2017-02-21 02:51 | Inpatient (IN) | payer MEDICAID ==
[~2017-02-21] VITALS: Ht 177.8 cm; Wt 97.3 kg
[2017-02-21] MEDS ORDERED: SODIUM CHLORIDE 0.9% 1,000 ML IV ONE (03:00)
[2017-02-21 03:18] LABS: Basophils # (auto) 0 uL; Eosinophils # (auto) 0 uL; Eosinophils % (auto) 0.5 % (0.0-7.0); Hematocrit 40.5 % (41.0-53.0); Hemoglobin 13.7 g/dL (13.5-17.5); Lymphocytes # (auto) 2.1 uL; Lymphocytes % (auto) 50.1 % (10.0-50.0); Mean Corpuscular Hemoglobin 32.8 pg (28.0-32.0); Mean Corpuscular Hgb Conc. 33.8 g/dL (32.0-36.0); Mean Corpuscular Volume 97.3 fL (80.0-100.0); Mean Platelet Volume 7.9 fL (7.4-10.4); Monocytes # (auto) 0.5 uL; Monocytes % (auto) 11.5 % (0.0-12.0); Neutrophils # (auto) 1.6 uL; Neutrophils % (auto) 36.9 % (37.0-80.0); Platelet Count (auto) 388 10^3/uL (140-450); Red Cell Distribution Width 15.2 % (11.6-16.0); White Blood Cell 4.2 10^3/uL (4.4-10.8)
[2017-02-21 03:42] LABS: Albumin 3.4 g/dL (3.4-5.0); BUN/Creatinine Ratio 4.1; Calcium 7.8 mg/dL (8.5-10.1); Potassium 3.1 mmol/L (3.5-5.1)
[2017-02-21 03:59] LABS: Bilirubin, Total 0.2 mg/dL (0.2-1.0); Total Protein 6.8 g/dL (6.4-8.2)
[2017-02-21] MEDS ORDERED: NALBUPHINE HCL 10 MG/1ml INJECTION IV ONE (04:15)
[2017-02-21] MEDS ORDERED: ONDANSETRON HCL 4 MG/2 ML VIAL IV ONE (04:15)
[2017-02-21 09:19] LABS: Urine RBC None Seen /hpf (0 - 3)
[2017-02-21] MEDS ORDERED: PHYTONADIONE (VIT K)10 MG/ML 1ML VIAL SUBCUT ONE (09:45)
[2017-02-21] MEDS ORDERED: POTASSIUM CHL 20 Meq TABLET PO ONE (09:45)
[2017-02-21] MEDS ORDERED: TEMAZEPAM 15 MG CAP PO PRN (09:45)
[2017-02-21] MEDS ORDERED: ACETAMINOPHEN 325 MG TAB PO PRN (09:45)
[2017-02-21] MEDS ORDERED: OCTREOTIDE ACETATE 100 MCG in SODIUM CHL 0.9% 50 ML IV ONE (09:45)
[2017-02-21] MEDS ORDERED: NITROGLYCERIN 0.4 MG SL TAB SL PRN (09:45)
[2017-02-21] MEDS ORDERED: ALUM & MAG HYDROX-SIMETH LIQ(MAALOX) 30 ML PO ONE (09:45)
[2017-02-21] MEDS ORDERED: ONDANSETRON HCL 4 MG/2 ML VIAL IV PRN (09:45)
[2017-02-21] MEDS ORDERED: DOCUSATE SOD 100 MG CAP PO PRN (09:45)
[2017-02-21] MEDS ORDERED: HYDROcodone-ACET 5/325MG TAB PO PRN (09:45)
[2017-02-21] MEDS ORDERED: OCTREOTIDE ACETATE 500 MCG in SODIUM CHL 0.9% 99 ML IV SCH (09:45)
[2017-02-21] MEDS ORDERED: MORPHINE SULF INJ 2 MG/ML SYRINGE 1ML IV PRN (09:45)
[2017-02-21] MEDS ORDERED: chlordiazePOXIDE HCL 25 MG CAP PO PRN (09:45)
[2017-02-21] MEDS: ATENOLOL 25 MG TAB PO SCH ×2 (10:00→22:33)
[2017-02-21] MEDS: MULTIPLE VITAMIN TAB PO SCH (10:00)
[2017-02-21] MEDS ORDERED: FAMOTIDINE (10MG/ML) 2ML VL IV SCH (10:00)
[2017-02-21 10:33] LABS: Urine Bilirubin Negative (Negative); Urine Blood Negative /uL (Negative); Urine Color Yellow (Yellow); Urine Glucose Normal (Normal); Urine Ketone TRACE (Negative); Urine Mucus FEW (None Seen); Urine Nitrite Negative (Negative); Urine Squamous Epithelial Cell FEW /hpf (<5); Urine Urobilinogen Normal (Negative); Urine pH 5.5 (5.0-8.0)
[2017-02-21 10:35] LABS: INR 0.96 (0.9-1.15); Prothrombin Time 10.4 sec (9.37-12.3)
[2017-02-21] MEDS: THIAMINE INJ 100 MG, MULTIPLE VITAMIN 10 ML, FOLIC ACID 1 MG, MAGNESIUM SULF SDV 50% 8 ... IV SCH ×5 (10:35)
[2017-02-21] MEDS: SODIUM CHLORIDE 0.9% 1,000 ML IV SCH ×2 (10:35→17:56)
[2017-02-21] MEDS: PANTOPRAZOLE SODIUM 40 MG/10 ML VIAL IV SCH ×2 (10:35→22:29)
[2017-02-21 11:44] LABS: Hematocrit 39.1 % (41.0-53.0); Hemoglobin 13.2 g/dL (13.5-17.5)
[2017-02-21] MEDS: ALUM & MAG HYDROX-SIMETH LIQ(MAALOX) 30 ML PO SCH ×3 (12:00→22:00)
[2017-02-21] MEDS ORDERED: SODIUM CHLORIDE LOCK 10 ML ONE (12:07)
[2017-02-21] MEDS ORDERED: LIDOCAINE VISCOUS 2% 15ML UD ONE (12:07)
[2017-02-21] MEDS ORDERED: diphenhdrAMINE HCL 50 MG/1 ML VL ONE (12:08)
[2017-02-21] MEDS: MORPHINE SULF INJ 2 MG/ML SYRINGE 1ML IV PRN ×2 (12:22→20:13)
[2017-02-21] MEDS ORDERED: OMEP20CA5 OR (12:37)
[2017-02-21] MEDS: MIDAZOLAM HCL 5 MG/ML-1ML VIAL ONE ×2 (13:34→13:38)
[2017-02-21] MEDS: fentaNYL CITRATE 100 MCG/2 ML VL ONE ×2 (13:34→13:38)
[2017-02-21 15:00] VITALS: BP 136/84
[2017-02-21 17:01] VITALS: BP 133/84
[2017-02-21 18:15] LABS: Hematocrit 36.9 % (41.0-53.0); Hemoglobin 12.2 g/dL (13.5-17.5)
[2017-02-21 22:00] VITALS: BP 163/78
[2017-02-22] MEDS: MORPHINE SULF INJ 2 MG/ML SYRINGE 1ML IV PRN ×3 (02:05→11:05)
[2017-02-22] MEDS: SODIUM CHLORIDE 0.9% 1,000 ML IV SCH ×2 (03:29→11:05)
[2017-02-22 05:00] VITALS: BP 134/90
[2017-02-22] MEDS: ALUM & MAG HYDROX-SIMETH LIQ(MAALOX) 30 ML PO SCH ×2 (05:48→11:07)
[2017-02-22 06:25] LABS: Basophils # (auto) 0 uL; Basophils % (auto) 0.5 % (0.0-2.0); Eosinophils # (auto) 0 uL; Eosinophils % (auto) 0.6 % (0.0-7.0); Hematocrit 35.3 % (41.0-53.0); Hemoglobin 11.9 g/dL (13.5-17.5); Lymphocytes # (auto) 1.7 uL; Lymphocytes % (auto) 33.9 % (10.0-50.0); Mean Corpuscular Hemoglobin 33.4 pg (28.0-32.0); Mean Corpuscular Hgb Conc. 33.6 g/dL (32.0-36.0); Mean Corpuscular Volume 99.6 fL (80.0-100.0); Monocytes # (auto) 0.6 uL; Monocytes % (auto) 11.5 % (0.0-12.0); Neutrophils # (auto) 2.6 uL; Neutrophils % (auto) 53.5 % (37.0-80.0); Platelet Count (auto) 344 10^3/uL (140-450); Red Cell Distribution Width 15.6 % (11.6-16.0); White Blood Cell 4.9 10^3/uL (4.4-10.8)
[2017-02-22 06:57] LABS: Albumin 2.9 g/dL (3.4-5.0); BUN/Creatinine Ratio 5.6; Bilirubin, Total 0.4 mg/dL (0.2-1.0); Calcium 7.3 mg/dL (8.5-10.1); Potassium 3.3 mmol/L (3.5-5.1); Total Protein 5.7 g/dL (6.4-8.2)
[2017-02-22 08:00] VITALS: BP 135/91
[2017-02-22 08:17] VITALS: BP 135/91
[2017-02-22] MEDS: MULTIPLE VITAMIN TAB PO SCH (09:17)
[2017-02-22] MEDS: PANTOPRAZOLE SODIUM 40 MG/10 ML VIAL IV SCH (09:18)
[2017-02-22] MEDS: ATENOLOL 25 MG TAB PO SCH (09:18)
[2017-02-22] MEDS: THIAMINE INJ 100 MG, MULTIPLE VITAMIN 10 ML, FOLIC ACID 1 MG, MAGNESIUM SULF SDV 50% 8 ... IV SCH ×5 (11:06)
[2017-02-22 12:24] VITALS: BP 156/99
[2017-02-22] MEDS ORDERED: POTASSIUM CHL 10 Meq TABLET PO ONE (13:45)
[2017-02-22 14:32] VITALS: BP 135/91
== END 2017-02-22 15:32 | disposition home or self-care (01) | DRG 253 ==
LOC: EDBD 02:51 → ER 02:54 → TELE 02:55 → TELE-E-ADS 12:16 → TELE-WESTW 14:51
PROVIDERS: ADMIT Internal Medicine; ATTEND Internal Medicine
PROC: 0DJ08ZZ Inspection of Upper Intestinal Tract, Via Natural or Artificial Opening Endoscopic (ICD-10-PCS; principal; 2017-02-21 13:32)
DX: K92.0 Hematemesis (principal); E87.0 Hyperosmolality and hypernatremia; E44.0 Moderate protein-calorie malnutrition; K29.80 Duodenitis without bleeding; E87.1 Hypo-osmolality and hyponatremia; E83.51 Hypocalcemia; D63.8 Anemia in other chronic diseases classified elsewhere; E87.6 Hypokalemia; K21.9 Gastro-esophageal reflux disease without esophagitis; F32.9 Major depressive disorder, single episode, unspecified; K57.30 Diverticulosis of large intestine without perforation or abscess without bleeding; E86.0 Dehydration; F10.129 Alcohol abuse with intoxication, unspecified; Y90.8 Blood alcohol level of 240 mg/100 ml or more; Z90.49 Acquired absence of other specified parts of digestive tract; Z87.11 Personal history of peptic ulcer disease; Z68.30 Body mass index [BMI] 30.0-30.9, adult; Z80.9 Family history of malignant neoplasm, unspecified; Z87.19 Personal history of other diseases of the digestive system
CPT/HCPCS: 36415; 43235; 74176; 80053; 80320; 81001; 82150; 83690; 85014; 85018; 85025; 85610; 96361; 96365; 96375; C9113; G0434; J2250; J2405; J3430; J3490

== ENCOUNTER 2017-03-01 08:50 | Observation (INO) | payer MEDICAID ==
[~2017-03-01] VITALS: Ht 182.9 cm; Wt 96.6 kg
[~2017-03-01 08:50] MED LIST changes: +OMEP20CA5 OR
[2017-03-01] MEDS ORDERED: SODIUM CHLORIDE 0.9% 1,000 ML IVB ONE (10:07)
[2017-03-01] MEDS ORDERED: PROCHLORPERAZINE EDISYLATE 5 MG/ML 2ML VIAL IV ONE (10:15)
[2017-03-01] MEDS ORDERED: NALBUPHINE HCL 10 MG/1ml INJECTION IV ONE (10:15)
[2017-03-01 10:29] LABS: Basophils # (auto) 0 uL; Basophils % (auto) 0.7 % (0.0-2.0); Eosinophils # (auto) 0 uL; Eosinophils % (auto) 0.7 % (0.0-7.0); Hematocrit 40.5 % (41.0-53.0); Hemoglobin 13.6 g/dL (13.5-17.5); Lymphocytes # (auto) 1.6 uL; Lymphocytes % (auto) 38.5 % (10.0-50.0); Mean Corpuscular Hemoglobin 32.8 pg (28.0-32.0); Mean Corpuscular Hgb Conc. 33.6 g/dL (32.0-36.0); Mean Corpuscular Volume 97.5 fL (80.0-100.0); Mean Platelet Volume 8.4 fL (7.4-10.4); Monocytes # (auto) 0.4 uL; Monocytes % (auto) 9.5 % (0.0-12.0); Neutrophils % (auto) 50.6 % (37.0-80.0); Platelet Count (auto) 358 10^3/uL (140-450); Red Cell Distribution Width 15.6 % (11.6-16.0)
[2017-03-01 10:36] LABS: Albumin 3.5 g/dL (3.4-5.0); BUN/Creatinine Ratio 10.7; Bilirubin, Total 0.2 mg/dL (0.2-1.0); Calcium 8.5 mg/dL (8.5-10.1); Magnesium 1.8 mg/dL (1.6-2.6); Potassium 3.2 mmol/L (3.5-5.1); Total Protein 7.1 g/dL (6.4-8.2)
[2017-03-01 12:39] LABS: Urine Bilirubin Negative (Negative); Urine Blood Negative /uL (Negative); Urine Color Yellow (Yellow); Urine Glucose Normal (Normal); Urine Ketone Negative (Negative); Urine Mucus FEW (None Seen); Urine Nitrite Negative (Negative); Urine RBC <1 /hpf (0 - 3); Urine Urobilinogen Normal (Negative)
[2017-03-01] MEDS ORDERED: POTASSIUM CHL 20 Meq TABLET PO ONE (15:00)
[2017-03-01 15:31] VITALS: BP 167/64
== END 2017-03-01 15:37 | disposition home or self-care (01) | DRG 251 ==
LOC: ER 08:59 → OVERFLOW 10:11 → ER 15:37
PROVIDERS: ADMIT Emergency Medicine; ATTEND Emergency Medicine
DX: R10.11 Right upper quadrant pain (principal); K27.9 Peptic ulcer, site unspecified, unspecified as acute or chronic, without hemorrhage or perforation; E87.6 Hypokalemia; G89.29 Other chronic pain; K21.0 Gastro-esophageal reflux disease with esophagitis; F32.9 Major depressive disorder, single episode, unspecified
CPT/HCPCS: 36415; 74176; 80053; 81001; 83690; 83735; 84443; 85025; 96361; 96374; 96375; 99285; G0378; G0434; J0780; J2300; J7030

== ENCOUNTER 2017-03-04 19:42 | Observation (INO) | payer MEDICAID ==
[~2017-03-04] VITALS: Ht 182.9 cm; Wt 95.3 kg
[2017-03-04] MEDS ORDERED: ONDANSETRON HCL 4 MG/2 ML VIAL IV ONE ×2 (21:00→21:15)
[2017-03-04] MEDS ORDERED: SODIUM CHLORIDE 0.9% 1,000 ML IV ONE ×2 (21:00→21:07)
[2017-03-04] MEDS ORDERED: LORazepam 2MG/ML-1ML VIAL IV ONE (21:30)
[2017-03-04 21:52] LABS: Basophils # (auto) 0 uL; Basophils % (auto) 0.4 % (0.0-2.0); Eosinophils # (auto) 0 uL; Eosinophils % (auto) 0.1 % (0.0-7.0); Hematocrit 43.4 % (41.0-53.0); Hemoglobin 14.4 g/dL (13.5-17.5); Lymphocytes # (auto) 2.1 uL; Lymphocytes % (auto) 34.2 % (10.0-50.0); Mean Corpuscular Hemoglobin 32.9 pg (28.0-32.0); Mean Corpuscular Hgb Conc. 33.2 g/dL (32.0-36.0); Mean Corpuscular Volume 99.1 fL (80.0-100.0); Mean Platelet Volume 7.9 fL (7.4-10.4); Monocytes # (auto) 0.5 uL; Monocytes % (auto) 7.8 % (0.0-12.0); Neutrophils # (auto) 3.6 uL; Neutrophils % (auto) 57.5 % (37.0-80.0); Platelet Count (auto) 331 10^3/uL (140-450); Red Cell Distribution Width 15.6 % (11.6-16.0); White Blood Cell 6.2 10^3/uL (4.4-10.8)
[2017-03-04 22:27] LABS: Urine Bilirubin Negative (Negative); Urine Blood Negative /uL (Negative); Urine Color Yellow (Yellow); Urine Glucose Normal (Normal); Urine Mucus FEW (None Seen); Urine Nitrite Negative (Negative); Urine RBC <1 /hpf (0 - 3); Urine Urobilinogen Normal (Negative)
[2017-03-04 22:32] LABS: Urine Ketone 1+ (Negative)
[2017-03-04 22:36] LABS: Albumin 3.4 g/dL (3.4-5.0); Alkaline Phosphatase 80 U/L (45-117); Amylase 32 U/L (25-115); Anion Gap 20 (5-15); Aspartate Aminotransferase 47 U/L (15-37); BUN/Creatinine Ratio 6.8; Bilirubin, Total 0.2 mg/dL (0.2-1.0); Blood Urea Nitrogen 6 mg/dL (7-18); Calcium 8.1 mg/dL (8.5-10.1); Carbon Dioxide 20 mmol/L (21-32); Chloride 115 mmol/L (98-107); GFR African American 125 mL/min; GFR Non-African American 103 mL/min; Glucose 78 mg/dL (74-106); Potassium 3.1 mmol/L (3.5-5.1); Sodium 155 mmol/L (136-145)
[2017-03-05] MEDS ORDERED: SODIUM CHLORIDE 0.9% 1,000 ML IV ONE ×2 (00:24→02:30)
[2017-03-05 02:34] VITALS: BP 101/67
[2017-03-05] MEDS ORDERED: POTASSIUM CHL 10% (20 MEQ/15ML) ORAL SOLN PO ONE (03:00)
== END 2017-03-05 04:01 | disposition home or self-care (01) | DRG 53 ==
LOC: EDBD 19:42 → EDUNIT# 19:48 → ER 19:48 → OVERFLOW 03-05 00:11 → ER 03-05 04:01
PROVIDERS: ADMIT Emergency Medicine; ATTEND Emergency Medicine
DX: R56.9 Unspecified convulsions (principal); K86.1 Other chronic pancreatitis; I10 Essential (primary) hypertension; F10.120 Alcohol abuse with intoxication, uncomplicated; K21.9 Gastro-esophageal reflux disease without esophagitis; Z82.49 Family history of ischemic heart disease and other diseases of the circulatory system; Z83.3 Family history of diabetes mellitus
CPT/HCPCS: 36415; 70450; 71101; 80053; 80320; 81001; 82150; 83690; 84484; 85025; 96361; 96374; 96375; 99285; G0378; J2060; J2405; J7030

== ENCOUNTER 2017-03-05 20:09 | Observation (INO) | payer MEDICAID ==
[~2017-03-05] VITALS: Ht 185.4 cm; Wt 86.2 kg
[2017-03-05] MEDS ORDERED: SODIUM CHLORIDE 0.9% 1,000 ML IVB ONE (20:19)
[2017-03-05] MEDS ORDERED: DEXTROSE 50% SYRINGE 50 ML IV ONE (20:30)
[2017-03-05] MEDS ORDERED: SODIUM CHLORIDE 0.9% 250 ML IV ONE (20:51)
[2017-03-05] MEDS ORDERED: SODIUM CHLORIDE 0.9% 1,000 ML IV ONE (20:51)
[2017-03-05] MEDS ORDERED: chlordiazePOXIDE HCL 5 MG CAP PO ONE (21:00)
[2017-03-05 21:24] LABS: Basophils # (auto) 0 uL; Basophils % (auto) 0.2 % (0.0-2.0); Eosinophils # (auto) 0 uL; Eosinophils % (auto) 0.1 % (0.0-7.0); Hematocrit 37.7 % (41.0-53.0); Hemoglobin 12.4 g/dL (13.5-17.5); Lymphocytes # (auto) 1.3 uL; Lymphocytes % (auto) 33.4 % (10.0-50.0); Mean Corpuscular Hemoglobin 32.5 pg (28.0-32.0); Mean Corpuscular Volume 98.6 fL (80.0-100.0); Mean Platelet Volume 7.7 fL (7.4-10.4); Monocytes # (auto) 0.2 uL; Monocytes % (auto) 5.9 % (0.0-12.0); Neutrophils # (auto) 2.4 uL; Neutrophils % (auto) 60.4 % (37.0-80.0); Platelet Count (auto) 276 10^3/uL (140-450); Red Cell Distribution Width 15.9 % (11.6-16.0); White Blood Cell 3.9 10^3/uL (4.4-10.8)
[2017-03-05 22:03] LABS: Anion Gap 16 (5-15); Aspartate Aminotransferase 60 U/L (15-37); BUN/Creatinine Ratio 5.9; Blood Urea Nitrogen 6 mg/dL (7-18); Calcium 6.9 mg/dL (8.5-10.1); Carbon Dioxide 18 mmol/L (21-32); Chloride 116 mmol/L (98-107); GFR African American 106 mL/min; GFR Non-African American 88 mL/min; Glucose 112 mg/dL (74-106); Magnesium 1.9 mg/dL (1.6-2.6); Potassium 3.3 mmol/L (3.5-5.1); Sodium 150 mmol/L (136-145)
[2017-03-05 22:05] LABS: Lactic Acid w/Reflex 5.5 mmol/L (0.4-2.0); REFLEX LACTIC ACID YES OR NO YES
[2017-03-05 22:08] LABS: Alkaline Phosphatase 66 U/L (45-117); Bilirubin, Total 0.2 mg/dL (0.2-1.0); Total Protein 5.9 g/dL (6.4-8.2)
[2017-03-06 01:30] VITALS: BP 132/64
[2017-03-06] MEDS ORDERED: SODIUM CHLORIDE 0.9% 1,000 ML IV ONE (01:50)
== END 2017-03-06 04:02 | disposition home or self-care (01) | DRG 775 ==
LOC: EDBD 20:09 → ER 20:20 → EDUNIT# 20:20 → OVERFLOW 21:03 → ER 03-06 04:02
PROVIDERS: ADMIT Emergency Medicine; ATTEND Emergency Medicine
DX: F10.120 Alcohol abuse with intoxication, uncomplicated (principal); I10 Essential (primary) hypertension; K21.9 Gastro-esophageal reflux disease without esophagitis; Z82.49 Family history of ischemic heart disease and other diseases of the circulatory system; Z83.3 Family history of diabetes mellitus
CPT/HCPCS: 36415; 80053; 80320; 82962; 83605; 83690; 83735; 84484; 85025; 93005; 96360; 96361; 99285; G0378; J7030; J7042

== ENCOUNTER 2017-03-10 15:32 | Emergency (ER) | payer MEDICAID ==
[~2017-03-10] VITALS: Ht 185.4 cm; Wt 97.5 kg
[2017-03-10] MEDS ORDERED: PANTOPRAZOLE SODIUM 40 MG/10 ML VIAL IV STA (16:15)
[2017-03-10] MEDS ORDERED: PROCHLORPERAZINE EDISYLATE 5 MG/ML 2ML VIAL IV ONE (16:15)
[2017-03-10] MEDS ORDERED: SODIUM CHLORIDE 0.9% 1,000 ML IVB ONE (16:15)
[2017-03-10] MEDS ORDERED: MORPHINE SULFATE 4 MG/ML SYRG IV ONE (16:15)
[2017-03-10 16:45] LABS: Basophils # (auto) 0 uL; Basophils % (auto) 0.4 % (0.0-2.0); Eosinophils # (auto) 0.1 uL; Hemoglobin 14.6 g/dL (13.5-17.5); Lymphocytes # (auto) 2.3 uL; Lymphocytes % (auto) 34.9 % (10.0-50.0); Mean Corpuscular Hemoglobin 33.3 pg (28.0-32.0); Mean Corpuscular Hgb Conc. 34.1 g/dL (32.0-36.0); Mean Corpuscular Volume 97.8 fL (80.0-100.0); Mean Platelet Volume 8.2 fL (7.4-10.4); Monocytes # (auto) 0.6 uL; Monocytes % (auto) 9.8 % (0.0-12.0); Neutrophils # (auto) 3.5 uL; Neutrophils % (auto) 53.9 % (37.0-80.0); Platelet Count (auto) 254 10^3/uL (140-450); White Blood Cell 6.5 10^3/uL (4.4-10.8)
[2017-03-10 17:07] LABS: Albumin 3.8 g/dL (3.4-5.0); BUN/Creatinine Ratio 5.9; Bilirubin, Total 0.4 mg/dL (0.2-1.0); Calcium 8.7 mg/dL (8.5-10.1); Total Protein 7.5 g/dL (6.4-8.2)
[2017-03-10 17:31] LABS: Potassium 2.9 mmol/L (3.5-5.1)
[2017-03-10] MEDS ORDERED: POTASSIUM CHL 10% (20 MEQ/15ML) ORAL SOLN PO ONE (19:00)
[2017-03-10] MEDS ORDERED: SODIUM CHLORIDE 0.9% 2,000 ML IV ONE (20:45)
[2017-03-10 21:00] VITALS: BP 122/59
== END 2017-03-10 21:31 | disposition left against medical advice (07) ==
LOC: ER 15:38
DX: F10.129 Alcohol abuse with intoxication, unspecified (principal); K27.9 Peptic ulcer, site unspecified, unspecified as acute or chronic, without hemorrhage or perforation; K21.9 Gastro-esophageal reflux disease without esophagitis
CPT/HCPCS: 36415; 80053; 80320; 82150; 83690; 85025; 86850; 86900; 86901; 94761; 96361; 96374; 96375; 99285; C9113; J0780; J2270; J7030

== ENCOUNTER 2017-03-15 15:19 | Emergency (ER) | payer MEDICAID ==
[~2017-03-15] VITALS: Ht 180.3 cm; Wt 97.5 kg
[2017-03-15 15:52] LABS: Basophils # (auto) 0 uL; Basophils % (auto) 0.3 % (0.0-2.0); Eosinophils # (auto) 0 uL; Eosinophils % (auto) 0.8 % (0.0-7.0); Hematocrit 41.3 % (41.0-53.0); Lymphocytes % (auto) 41.7 % (10.0-50.0); Mean Corpuscular Hemoglobin 33.3 pg (28.0-32.0); Mean Corpuscular Hgb Conc. 33.8 g/dL (32.0-36.0); Mean Corpuscular Volume 98.7 fL (80.0-100.0); Mean Platelet Volume 8.1 fL (7.4-10.4); Monocytes # (auto) 0.5 uL; Monocytes % (auto) 9.8 % (0.0-12.0); Neutrophils # (auto) 2.3 uL; Neutrophils % (auto) 47.4 % (37.0-80.0); Platelet Count (auto) 270 10^3/uL (140-450); Red Cell Distribution Width 14.6 % (11.6-16.0); White Blood Cell 4.8 10^3/uL (4.4-10.8)
[2017-03-15 16:22] LABS: Albumin 3.5 g/dL (3.4-5.0); Alkaline Phosphatase 74 U/L (45-117); Anion Gap 18 (5-15); Aspartate Aminotransferase 38 U/L (15-37); BUN/Creatinine Ratio 7.1; Bilirubin, Total 0.2 mg/dL (0.2-1.0); Blood Urea Nitrogen 6 mg/dL (7-18); Calcium 8.2 mg/dL (8.5-10.1); Carbon Dioxide 19 mmol/L (21-32); Chloride 112 mmol/L (98-107); GFR African American 132 mL/min; GFR Non-African American 109 mL/min; Glucose 78 mg/dL (74-106); Magnesium 2.3 mg/dL (1.6-2.6); Potassium 3.2 mmol/L (3.5-5.1); Sodium 149 mmol/L (136-145); Total Protein 7.3 g/dL (6.4-8.2)
[2017-03-15] MEDS ORDERED: KETOROLAC TROMETH 30 MG/ML 1ML VIAL IV ONE (18:45)
[2017-03-15] MEDS ORDERED: SODIUM CHLORIDE 0.9% 1,000 ML IV ONE (18:45)
[2017-03-15 19:44] VITALS: BP 102/63
== END 2017-03-15 19:52 | disposition home or self-care (01) ==
LOC: ER 15:19 → EDBD 15:19 → ER 19:52
DX: F10.120 Alcohol abuse with intoxication, uncomplicated (principal); M79.1 Myalgia; K21.9 Gastro-esophageal reflux disease without esophagitis; G89.29 Other chronic pain; M54.9 Dorsalgia, unspecified; Z87.11 Personal history of peptic ulcer disease; K86.1 Other chronic pancreatitis
CPT/HCPCS: 36415; 80053; 80320; 83735; 84484; 85025; 96361; 96374; 99284; J1885; J7030

== ENCOUNTER 2017-04-14 21:53 | Emergency (ER) | payer MEDICAID ==
[~2017-04-14] VITALS: Ht 172.7 cm; Wt 79.4 kg
[2017-04-14] MEDS ORDERED: TETANUS-DIPTH-ACEL PERTUSSIS 0.5ML SYRG IM ONE (23:15)
[2017-04-14] MEDS ORDERED: HYDROmorphone HCL 2 MG/ML VL IV ONE (23:15)
[2017-04-14] MEDS ORDERED: cefTRIAXone 1GM/50ML D5W 50 ML IV ONE (23:15)
[2017-04-14] MEDS ORDERED: ONDANSETRON HCL 4 MG/2 ML VIAL IV ONE (23:15)
[2017-04-14] MEDS ORDERED: SODIUM CHLORIDE 0.9% 2,000 ML IV ONE (23:30)
[2017-04-15] MEDS ORDERED: LIDOCAINE 1% HCL (LOCAL ANESTH.) INJ 20ML MDV ONE (01:11)
[2017-04-15] MEDS ORDERED: LIDOCAINE 1% HCL (LOCAL ANESTH.) INJ 20ML MDV IJ ONE (01:15)
[2017-04-15 01:31] VITALS: BP 133/55
[2017-04-15] MEDS ORDERED: NEOMYCIN-BACITRACIN-POLYM UNITDOSE PKG TOP OINT TOP ONE (03:00)
[2017-04-15] MEDS ORDERED: BACITRACIN-POLYMYXIN B TOPICAL OINT UD TOP ONE (03:20)
== END 2017-04-15 03:45 | disposition home or self-care (01) ==
LOC: ER 21:57
DX: S61.412A Laceration without foreign body of left hand, initial encounter (principal); K21.9 Gastro-esophageal reflux disease without esophagitis; K76.9 Liver disease, unspecified; Z87.11 Personal history of peptic ulcer disease; Z90.89 Acquired absence of other organs; V28.0XXA Motorcycle driver injured in noncollision transport accident in nontraffic accident, initial encounter; Y93.89 Activity, other specified; Y99.8 Other external cause status; Y92.410 Unspecified street and highway as the place of occurrence of the external cause
CPT/HCPCS: 12002; 73120; 90471; 90715; 96365; 96366; 96375; 99285; J0696; J1170; J2001; J2405; J7030

== ENCOUNTER 2017-04-25 18:32 | Emergency (ER) | payer MEDICAID ==
[~2017-04-25] VITALS: Ht 182.9 cm; Wt 94.8 kg
[~2017-04-25 18:32] MED LIST changes: -OMEP20CA5 OR; +OMEP20CA74 OR
[2017-04-25 18:47] VITALS: BP 156/118
== END 2017-04-25 20:24 | disposition home or self-care (01) ==
LOC: ER 18:39
DX: S61.411D Laceration without foreign body of right hand, subsequent encounter (principal); K21.9 Gastro-esophageal reflux disease without esophagitis; Z90.89 Acquired absence of other organs; Z48.02 Encounter for removal of sutures

== ENCOUNTER 2017-08-04 08:21 | Emergency (ER) | payer MEDICAID ==
[~2017-08-04] VITALS: Ht 185.4 cm; Wt 97.5 kg
[2017-08-04 08:50] LABS: Urine RBC None Seen /hpf (0 - 3)
[2017-08-04 09:00] LABS: Basophils # (auto) 0 uL; Basophils % (auto) 0.5 % (0.0-2.0); Eosinophils # (auto) 0.3 uL; Eosinophils % (auto) 3.2 % (0.0-7.0); Hematocrit 46.2 % (41.0-53.0); Hemoglobin 15.8 g/dL (13.5-17.5); Lymphocytes % (auto) 50.8 % (10.0-50.0); Mean Corpuscular Hemoglobin 30.8 pg (28.0-32.0); Mean Corpuscular Hgb Conc. 34.3 g/dL (32.0-36.0); Mean Corpuscular Volume 89.8 fL (80.0-100.0); Mean Platelet Volume 6.8 fL (6.9-10.8); Monocytes # (auto) 0.6 uL; Neutrophils % (auto) 37.5 % (37.0-80.0); Nucleated Red Blood Cells % 0.2 %; Platelet Count (auto) 337 10^3/uL (140-450); Red Cell Distribution Width 13.4 % (11.8-14.3); White Blood Cell 7.9 10^3/uL (4.4-10.8)
[2017-08-04 09:01] LABS: Urine Bilirubin Negative (Negative); Urine Blood Negative /uL (Negative); Urine Color Yellow (Yellow); Urine Glucose Normal (Normal); Urine Ketone Negative (Negative); Urine Mucus FEW (None Seen); Urine Nitrite Negative (Negative); Urine Urobilinogen Normal (Negative)
[2017-08-04 09:11] LABS: Albumin 4.1 g/dL (3.4-5.0); BUN/Creatinine Ratio 14.2; Calcium 8.5 mg/dL (8.5-10.1); Potassium 4.3 mmol/L (3.5-5.1)
[2017-08-04 09:14] LABS: Bilirubin, Total 0.2 mg/dL (0.2-1.0); Total Protein 8.2 g/dL (6.4-8.2)
[2017-08-04] MEDS ORDERED: SODIUM CHLORIDE 0.9% 1,000 ML IVB ONE (09:41)
[2017-08-04] MEDS ORDERED: PANTOPRAZOLE 40 MG/10 ML VIAL IV STA (09:41)
[2017-08-04 10:42] VITALS: BP 114/69
== END 2017-08-04 10:58 | disposition home or self-care (01) ==
LOC: ER 08:21
DX: K21.9 Gastro-esophageal reflux disease without esophagitis (principal); Z90.49 Acquired absence of other specified parts of digestive tract; Z79.899 Other long term (current) drug therapy
CPT/HCPCS: 36415; 71020; 80053; 81001; 83690; 85025; 94761; 96361; 96374; 99285; C9113; J7030

== ENCOUNTER 2018-01-05 23:56 | Emergency (ER) | payer MEDICAID ==
[~2018-01-05] VITALS: Ht 180.3 cm; Wt 99.8 kg
[2018-01-06 00:05] VITALS: BP 133/110
== END 2018-01-06 06:18 | disposition left against medical advice (07) ==
LOC: ER 23:56 → EDUNIT# 23:56 → EDBD 23:56 → ER 01-06 06:18
DX: R10.84 Generalized abdominal pain (principal); Z53.21 Procedure and treatment not carried out due to patient leaving prior to being seen by health care provider

== ENCOUNTER 2018-04-21 21:10 | Emergency (ER) | payer MEDICAID ==
[~2018-04-21] VITALS: Ht 180.3 cm; Wt 77.1 kg
[2018-04-21 21:10] VITALS: BP 168/88
[2018-04-21] MEDS ORDERED: KETOROLAC TROMETH 30 MG/ML 1ML VIAL ONE (22:16)
[2018-04-21] MEDS ORDERED: KETOROLAC TROMETH 30 MG/ML 1ML VIAL IV ONE (22:45)
[2018-04-21 23:02] LABS: Basophils # (auto) 0.3 uL; Basophils % (auto) 4.5 % (0.0-2.0); Eosinophils # (auto) 0 uL; Eosinophils % (auto) 0.1 % (0.0-7.0); Hematocrit 44.4 % (41.0-53.0); Hemoglobin 15.3 g/dL (13.5-17.5); Lymphocytes # (auto) 2.2 uL; Lymphocytes % (auto) 34.7 % (10.0-50.0); Mean Corpuscular Hemoglobin 31.4 pg (28.0-32.0); Mean Corpuscular Hgb Conc. 34.4 g/dL (32.0-36.0); Mean Corpuscular Volume 91.1 fL (80.0-100.0); Monocytes # (auto) 0.4 uL; Monocytes % (auto) 6.4 % (0.0-12.0); Neutrophils # (auto) 3.5 uL; Neutrophils % (auto) 54.3 % (37.0-80.0); Nucleated Red Blood Cells % 0.1 %; Platelet Count (auto) 291 10^3/uL (140-450); Red Blood Cells 4.87 10^6/uL (4.5-5.90); Red Cell Distribution Width 13.1 % (11.8-14.3); White Blood Cell 6.4 10^3/uL (4.4-10.8)
[2018-04-21 23:19] LABS: Acetaminophen < 2.0 ug/mL (10-30); BUN/Creatinine Ratio 8.1; Calcium 8.4 mg/dL (8.5-10.1); Magnesium 2.2 mg/dL (1.6-2.6); Potassium 3.8 mmol/L (3.5-5.1); Salicylate < 1.7 mg/dL (2.8-20.0)
[2018-04-21 23:23] LABS: Bilirubin, Total 0.2 mg/dL (0.2-1.0)
[2018-04-22] MEDS ORDERED: THIAMINE INJ 100 MG, MULTIPLE VITAMIN 10 ML, FOLIC ACID 1 MG, MAGNESIUM SULF SDV 50% 8 ... IV SCH ×5 (12:00)
== END 2018-04-22 04:24 | disposition home or self-care (01) ==
LOC: ER 21:10 → EDBD 21:10 → ER 04-22 04:24
DX: G92 Toxic encephalopathy (principal); F10.129 Alcohol abuse with intoxication, unspecified; K21.9 Gastro-esophageal reflux disease without esophagitis; K70.30 Alcoholic cirrhosis of liver without ascites; G89.29 Other chronic pain; R10.9 Unspecified abdominal pain; Z90.49 Acquired absence of other specified parts of digestive tract
CPT/HCPCS: 36415; 74176; 80053; 80320; 80329; 83735; 85025; 96374; 99285; J1885

== ENCOUNTER 2018-08-06 13:51 | Emergency (ER) | payer MEDICAID ==
[2018-08-06 16:42] LABS: Urine WBC None Seen /hpf (0 - 3)
[2018-08-06 16:52] LABS: Basophils # (auto) 0 uL; Basophils % (auto) 0.4 % (0.0-2.0); Eosinophils # (auto) 0 uL; Eosinophils % (auto) 0.7 % (0.0-7.0); Hematocrit 45.7 % (41.0-53.0); Hemoglobin 15.4 g/dL (13.5-17.5); Lymphocytes # (auto) 2.4 uL; Lymphocytes % (auto) 43.2 % (10.0-50.0); Mean Corpuscular Hemoglobin 31.1 pg (28.0-32.0); Mean Corpuscular Hgb Conc. 33.8 g/dL (32.0-36.0); Mean Corpuscular Volume 92.2 fL (80.0-100.0); Monocytes # (auto) 0.5 uL; Monocytes % (auto) 8.1 % (0.0-12.0); Neutrophils # (auto) 2.7 uL; Neutrophils % (auto) 47.6 % (37.0-80.0); Nucleated Red Blood Cells % 0.2 %; Platelet Count (auto) 308 10^3/uL (140-450); Red Blood Cells 4.95 10^6/uL (4.5-5.90); White Blood Cell 5.6 10^3/uL (4.4-10.8)
[2018-08-06 17:01] LABS: Urine Bacteria NONE SEEN /hpf (None Seen); Urine Blood Negative /uL (Negative); Urine Specific Gravity 1.009 (1.001-1.035)
[2018-08-06 17:09] LABS: Albumin 4.1 g/dL (3.4-5.0); Bilirubin, Total 0.3 mg/dL (0.2-1.0); Calcium 8.3 mg/dL (8.5-10.1); Potassium 3.3 mmol/L (3.5-5.1); Total Protein 7.8 g/dL (6.4-8.2)
[2018-08-06 17:18] LABS: Amphetamine Screen, Urine POSITIVE (NEGATIVE); Barbiturate Scree,Urine NEGATIVE (NEGATIVE); Benzodiazephine Screen, Urine NEGATIVE (NEGATIVE); Cannabinoid Screen, Urine NEGATIVE (NEGATIVE); Cocaine Screen, Urine NEGATIVE (NEGATIVE); Opiate Scree,Urine NEGATIVE (NEGATIVE); Phencyclidine Screen, Urine NEGATIVE (NEGATIVE)
[2018-08-06 21:24] VITALS: BP 103/67
== END 2018-08-06 22:22 | disposition home or self-care (01) ==
LOC: EDBD 13:51 → ER 13:57
DX: F10.129 Alcohol abuse with intoxication, unspecified (principal); S60.221A Contusion of right hand, initial encounter; F17.210 Nicotine dependence, cigarettes, uncomplicated; F15.90 Other stimulant use, unspecified, uncomplicated; K21.9 Gastro-esophageal reflux disease without esophagitis; Z87.11 Personal history of peptic ulcer disease; Z87.19 Personal history of other diseases of the digestive system; Y90.8 Blood alcohol level of 240 mg/100 ml or more; X58.XXXA Exposure to other specified factors, initial encounter; Y93.89 Activity, other specified; Y92.89 Other specified places as the place of occurrence of the external cause; Y99.8 Other external cause status
CPT/HCPCS: 36415; 71046; 73120; 80053; 80307; 81001; 85025

== ENCOUNTER 2018-08-07 18:30 | Emergency (ER) | payer MEDICAID ==
[~2018-08-07] VITALS: Ht 182.9 cm; Wt 90.7 kg
[2018-08-07] MEDS ORDERED: LORazepam 2MG/ML-1ML VIAL ONE (18:40)
[2018-08-07] MEDS ORDERED: HALOPERIDOL LACTATE 5 MG/ML INJ VIAL ONE (18:40)
[2018-08-07] MEDS ORDERED: HALOPERIDOL LACTATE 5 MG/ML INJ VIAL IM ONE (19:00)
[2018-08-07] MEDS ORDERED: LORazepam 2MG/ML-1ML VIAL IM ONE (19:00)
[2018-08-07] MEDS ORDERED: diphenhdrAMINE HCL 50 MG/1 ML VL IM ONE (19:15)
[2018-08-07] MEDS ORDERED: SODIUM CHLORIDE 0.9% 3,000 ML IV ONE (20:00)
[2018-08-07 20:24] LABS: Basophils # (auto) 0 uL; Basophils % (auto) 0.4 % (0.0-2.0); Eosinophils # (auto) 0 uL; Eosinophils % (auto) 0.3 % (0.0-7.0); Hematocrit 45.8 % (41.0-53.0); Hemoglobin 15.4 g/dL (13.5-17.5); Lymphocytes # (auto) 1.5 uL; Lymphocytes % (auto) 30.2 % (10.0-50.0); Mean Corpuscular Hgb Conc. 33.5 g/dL (32.0-36.0); Mean Corpuscular Volume 92.5 fL (80.0-100.0); Monocytes # (auto) 0.3 uL; Monocytes % (auto) 6.8 % (0.0-12.0); Neutrophils # (auto) 3.2 uL; Neutrophils % (auto) 62.3 % (37.0-80.0); Platelet Count (auto) 307 10^3/uL (140-450); Red Blood Cells 4.96 10^6/uL (4.5-5.90); Red Cell Distribution Width 15.1 % (11.8-14.3); White Blood Cell 5.1 10^3/uL (4.4-10.8)
[2018-08-07 20:42] LABS: Salicylate 3.1 mg/dL (2.8-20.0)
[2018-08-07 20:46] LABS: Acetaminophen < 2.0 ug/mL (10-30)
[2018-08-07 20:54] LABS: Bilirubin, Total 0.5 mg/dL (0.2-1.0); Calcium 8.3 mg/dL (8.5-10.1); Potassium 3.6 mmol/L (3.5-5.1); Total Protein 7.3 g/dL (6.4-8.2)
[2018-08-07 21:14] LABS: Amphetamine Screen, Urine POSITIVE (NEGATIVE); Barbiturate Scree,Urine NEGATIVE (NEGATIVE); Benzodiazephine Screen, Urine NEGATIVE (NEGATIVE); Cannabinoid Screen, Urine NEGATIVE (NEGATIVE); Cocaine Screen, Urine NEGATIVE (NEGATIVE); Opiate Scree,Urine NEGATIVE (NEGATIVE); Phencyclidine Screen, Urine NEGATIVE (NEGATIVE)
[2018-08-08] MEDS ORDERED: SODIUM CHLORIDE 0.9% 2,000 ML IV ONE (04:30)
[2018-08-08] MEDS ORDERED: PROPOFOL 100 ML IV ONE (17:48)
[2018-08-08 19:26] VITALS: BP 130/82
== END 2018-08-08 19:27 | disposition home or self-care (01) ==
LOC: EDBD 18:30 → ER 18:36
DX: F32.9 Major depressive disorder, single episode, unspecified (principal); F10.129 Alcohol abuse with intoxication, unspecified; R45.851 Suicidal ideations; K21.9 Gastro-esophageal reflux disease without esophagitis; F17.210 Nicotine dependence, cigarettes, uncomplicated; Z90.49 Acquired absence of other specified parts of digestive tract
CPT/HCPCS: 36415; 80053; 80307; 80320; 80329; 85025; 96372; 99284; J1630; J2060; J2704

== ENCOUNTER 2019-07-17 01:57 | Emergency (ER) | payer MEDICAID ==
[~2019-07-17] VITALS: Ht 182.9 cm; Wt 97.5 kg
[~2019-07-17 01:57] MED LIST changes: -OMEP20CA74 OR
[2019-07-17] MEDS ORDERED: SODIUM CHLORIDE 0.9% 1,000 ML IV ONE (02:14)
[2019-07-17] MEDS ORDERED: SODIUM CHLORIDE 0.9% 500 ML IV ONE (02:14)
[2019-07-17] MEDS ORDERED: ONDANSETRON HCL 4 MG/2 ML VIAL IV ONE ×2 (02:15→05:30)
[2019-07-17 02:46] LABS: Basophils # (auto) 0 uL; Basophils % (auto) 0.9 % (0.0-2.0); Eosinophils # (auto) 0.1 uL; Eosinophils % (auto) 1.1 % (0.0-7.0); Hematocrit 39.8 % (41.0-53.0); Hemoglobin 13.7 g/dL (13.5-17.5); Lymphocytes # (auto) 2.3 uL; Lymphocytes % (auto) 46.5 % (10.0-50.0); Mean Corpuscular Hemoglobin 32.2 pg (28.0-32.0); Mean Corpuscular Hgb Conc. 34.3 g/dL (32.0-36.0); Mean Corpuscular Volume 93.8 fL (80.0-100.0); Monocytes # (auto) 0.5 uL; Monocytes % (auto) 10.1 % (0.0-12.0); Neutrophils # (auto) 2.1 uL; Neutrophils % (auto) 41.4 % (37.0-80.0); Nucleated Red Blood Cells % 0.1 %; Platelet Count (auto) 224 10^3/uL (140-450); Red Blood Cells 4.25 10^6/uL (4.5-5.90); Red Cell Distribution Width 14.1 % (11.8-14.3)
[2019-07-17 02:55] LABS: INR < 0.93 (0.9-1.15); Partial Thromboplastin Time 26.6 sec (23.64-32.05)
[2019-07-17 02:57] LABS: Alanine Aminotransferase 22 U/L (16-61); Albumin 3.4 g/dL (3.4-5.0); Anion Gap 10 (5-15); Aspartate Aminotransferase 25 U/L (15-37); BUN/Creatinine Ratio 16.2; Blood Urea Nitrogen 16 mg/dL (7-18); Calcium 7.9 mg/dL (8.5-10.1); Carbon Dioxide 23 mmol/L (21-32); Chloride 112 mmol/L (98-107); GFR African American 108 mL/min; GFR Non-African American 89 mL/min; Glucose 92 mg/dL (74-106); Lipase 186 U/L (73-393); Sodium 145 mmol/L (136-145)
[2019-07-17] MEDS ORDERED: MORPHINE SULFATE 4 MG/ML SYR/VIAL IV ONE ×2 (03:00→05:30)
[2019-07-17 03:06] LABS: Alkaline Phosphatase 88 U/L (45-117); Bilirubin, Total < 0.1 mg/dL (0.2-1.0); Total Protein 6.6 g/dL (6.4-8.2)
[2019-07-17 03:38] LABS: Urine Amorphous Crystal FEW /hpf (None Seen); Urine Bacteria FEW /hpf (None Seen); Urine Blood Negative /uL (Negative); Urine Specific Gravity 1.023 (1.001-1.035); Urine WBC 1 /hpf (0 - 3)
[2019-07-17 03:42] LABS: Amphetamine Screen, Urine NEGATIVE (NEGATIVE); Barbiturate Scree,Urine NEGATIVE (NEGATIVE); Benzodiazephine Screen, Urine NEGATIVE (NEGATIVE); Cannabinoid Screen, Urine NEGATIVE (NEGATIVE); Cocaine Screen, Urine NEGATIVE (NEGATIVE); Opiate Scree,Urine NEGATIVE (NEGATIVE); Phencyclidine Screen, Urine NEGATIVE (NEGATIVE)
[2019-07-17 05:16] VITALS: BP 152/106
== END 2019-07-17 06:22 | disposition home or self-care (01) ==
LOC: EDBD 01:57 → ER 02:00
DX: K29.70 Gastritis, unspecified, without bleeding (principal); G92 Toxic encephalopathy; K80.20 Calculus of gallbladder without cholecystitis without obstruction; F10.229 Alcohol dependence with intoxication, unspecified; I50.9 Heart failure, unspecified; K21.9 Gastro-esophageal reflux disease without esophagitis; Z87.11 Personal history of peptic ulcer disease; Z90.49 Acquired absence of other specified parts of digestive tract; Z90.89 Acquired absence of other organs; F17.210 Nicotine dependence, cigarettes, uncomplicated; Y90.6 Blood alcohol level of 120-199 mg/100 ml
CPT/HCPCS: 36415; 74176; 80053; 80307; 80320; 81001; 83690; 85025; 85610; 85730; 86850; 86900; 86901; 94761; 96361; 96374; 96375; 96376; 99284; J2270; J2405; J7030

== ENCOUNTER → 2019-10-15 | Emergency (ER) | payer MEDICAID | END | disposition left against medical advice (07) | LOC: ER 00:17 | DX: I10 Essential (primary) hypertension (principal); Z53.21 Procedure and treatment not carried out due to patient leaving prior to being seen by health care provider ==

== ENCOUNTER 2019-10-20 20:33 | Emergency (ER) | payer SELFPAY ==
[~2019-10-20] VITALS: Ht 182.9 cm; Wt 99.8 kg
[2019-10-20] MEDS ORDERED: LEVETIRACETAM 500 MG/5ML INJ IV ONE (21:56)
[2019-10-20] MEDS: LEVETIRACETAM INJ 1,000 MG in D5W 5% 100 ML IV ONE ×2 (21:59→22:00)
[2019-10-20 22:07] LABS: Basophils # (auto) 0.1 uL; Basophils % (auto) 2.3 % (0.0-2.0); Eosinophils # (auto) 0 uL; Eosinophils % (auto) 0.8 % (0.0-7.0); Hemoglobin 14.9 g/dL (13.5-17.5); Lymphocytes # (auto) 1.6 uL; Lymphocytes % (auto) 33.9 % (10.0-50.0); Mean Corpuscular Hemoglobin 32.8 pg (28.0-32.0); Mean Corpuscular Hgb Conc. 35.4 g/dL (32.0-36.0); Mean Corpuscular Volume 92.6 fL (80.0-100.0); Monocytes # (auto) 0.5 uL; Monocytes % (auto) 10.4 % (0.0-12.0); Neutrophils # (auto) 2.5 uL; Neutrophils % (auto) 52.6 % (37.0-80.0); Platelet Count (auto) 256 10^3/uL (140-450); Red Blood Cells 4.54 10^6/uL (4.5-5.90); Red Cell Distribution Width 13.7 % (11.8-14.3); White Blood Cell 4.8 10^3/uL (4.4-10.8)
[2019-10-20 22:27] LABS: Albumin 3.2 g/dL (3.4-5.0); Calcium 7.6 mg/dL (8.5-10.1); Potassium 3.9 mmol/L (3.5-5.1)
[2019-10-20 22:32] LABS: BUN/Creatinine Ratio 12.4; Bilirubin, Total 0.1 mg/dL (0.2-1.0); Total Protein 6.5 g/dL (6.4-8.2)
[2019-10-21] MEDS ORDERED: SODIUM CHLORIDE 0.9% 1,000 ML IV ONE
[2019-10-21] MEDS ORDERED: THIAMINE INJ 100 MG in SODIUM CHLORIDE 0.9% 1,000 ML IV ONE ×2
[2019-10-21] MEDS ORDERED: THIAMINE 100mg/ml INJ (200mg/2ml VIAL) ONE (00:10)
[2019-10-21 04:53] VITALS: BP 135/66
== END 2019-10-21 05:07 | disposition home or self-care (01) ==
LOC: EDBD 20:33 → ER 20:36
DX: G40.909 Epilepsy, unspecified, not intractable, without status epilepticus (principal); F10.129 Alcohol abuse with intoxication, unspecified; Y90.0 Blood alcohol level of less than 20 mg/100 ml; F17.210 Nicotine dependence, cigarettes, uncomplicated; I50.9 Heart failure, unspecified; Z90.89 Acquired absence of other organs
CPT/HCPCS: 36415; 70450; 80053; 80320; 82542; 85025; 96365; 96367; 99284; J1953; J3411; J7030; J7060

== ENCOUNTER 2020-01-10 04:27 | Emergency (ER) | payer SELFPAY ==
[~2020-01-10] VITALS: Ht 177.8 cm; Wt 99.8 kg
[2020-01-10 05:30] VITALS: BP 141/72
== END 2020-01-10 05:34 | disposition left against medical advice (07) ==
LOC: ER 04:27 → EDBD 04:27 → ER 05:34
DX: R06.02 Shortness of breath (principal); Z53.21 Procedure and treatment not carried out due to patient leaving prior to being seen by health care provider

== ENCOUNTER 2020-08-12 17:22 | Emergency (ER) | payer SELFPAY ==
[~2020-08-12] VITALS: Ht 185.4 cm; Wt 94.3 kg
[2020-08-12 17:31] VITALS: BP 135/96
[2020-08-12] MEDS ORDERED: cefTRIAXone SOD 1,000 MG VL IM ONE (17:45)
[2020-08-12] MEDS ORDERED: CLINDAMYCIN 600 MG/4 ML VL IM ONE (18:15)
== END 2020-08-12 18:47 | disposition left against medical advice (07) ==
LOC: ER 17:22
DX: S61.411A Laceration without foreign body of right hand, initial encounter (principal); R03.0 Elevated blood-pressure reading, without diagnosis of hypertension; F17.210 Nicotine dependence, cigarettes, uncomplicated; K21.9 Gastro-esophageal reflux disease without esophagitis; I50.9 Heart failure, unspecified; Z79.899 Other long term (current) drug therapy; Z71.41 Alcohol abuse counseling and surveillance of alcoholic; W26.9XXA Contact with unspecified sharp object(s), initial encounter; Y93.89 Activity, other specified; Y92.89 Other specified places as the place of occurrence of the external cause; Y99.8 Other external cause status
CPT/HCPCS: 73120

== ENCOUNTER 2022-01-04 10:54 | Emergency (ER) | payer SELFPAY ==
[~2022-01-04] VITALS: Ht 172.7 cm; Wt 81.6 kg
[2022-01-04] MEDS ORDERED: NALOXONE HCL 1MG/ML 2ML SYRINGE IV ONE (11:15)
[2022-01-04] MEDS ORDERED: SODIUM CHLORIDE 0.9% 1,000 ML IV ONE ×2 (11:15)
[2022-01-04 12:03] LABS: Albumin 3.5 g/dL (3.4-5.0); Anion Gap 3 (5-15); BUN/Creatinine Ratio 13.5; Blood Urea Nitrogen 15 mg/dL (7-18); Calcium 8.2 mg/dL (8.5-10.1); Carbon Dioxide 28 mmol/L (21-32); Chloride 107 mmol/L (98-107); GFR African American 93 mL/min; GFR Non-African American 77 mL/min; Glucose 102 mg/dL (74-106); Potassium 3.6 mmol/L (3.5-5.1); Sodium 138 mmol/L (136-145)
[2022-01-04 12:06] LABS: Alanine Aminotransferase 30 U/L (16-61); Alkaline Phosphatase 97 U/L (45-117); Aspartate Aminotransferase 46 U/L (15-37); Basophils # (auto) 0 10 ^3/uL (0-0.2); Basophils % (auto) 0.2 % (0.0-2.0); Bilirubin, Total 0.5 mg/dL (0.2-1.0); Eosinophils # (auto) 0.1 10 ^3/uL (0-0.8); Eosinophils % (auto) 1.6 % (0.0-7.0); Hematocrit 41.7 % (41.0-53.0); Hemoglobin 13.8 g/dL (13.5-17.5); Lymphocytes # (auto) 1.4 10 ^3/uL (0.4-5.4); Lymphocytes % (auto) 21.2 % (10.0-50.0); Mean Corpuscular Hemoglobin 31.1 pg (28.0-32.0); Mean Corpuscular Volume 94.4 fL (80.0-100.0); Monocytes # (auto) 0.6 10 ^3/uL (0-1.3); Monocytes % (auto) 8.6 % (0.0-12.0); Neutrophils # (auto) 4.6 10 ^3/uL (1.6-8.6); Neutrophils % (auto) 68.4 % (37.0-80.0); Red Blood Cells 4.42 10^6/uL (4.5-5.90); Red Cell Distribution Width 13.8 % (11.8-14.3); Total Protein 6.7 g/dL (6.4-8.2); White Blood Cell 6.8 10^3/uL (4.4-10.8)
[2022-01-04 16:30] VITALS: BP 124/81
== END 2022-01-04 16:36 | disposition home or self-care (01) ==
LOC: ER 10:54 → EDBD 10:54 → ER 16:36
DX: G93.41 Metabolic encephalopathy (principal); F17.210 Nicotine dependence, cigarettes, uncomplicated; F15.10 Other stimulant abuse, uncomplicated; I50.9 Heart failure, unspecified; Z90.89 Acquired absence of other organs
CPT/HCPCS: 36415; 71045; 80053; 85025; 93005; 96361; 96374; 99285; J2310; J7030